=== PATIENT | female | born 1985 | race American Indian/Alaskan Native ===

== ENCOUNTER 2016-05-30 05:10 | Emergency (ER) | payer SELFPAY ==
[2016-05-30 05:44] VITALS: BP 172/116
[2016-05-30] MEDS ORDERED: TYLENOL PO ONE (05:44)
[2016-05-30 06:27] LABS: BUN/Creatinine Ratio 11.42; Blood Urea Nitrogen 8 mg/dL (7-17); Calcium 8.9 mg/dL (8.4-10.2); Carbon Dioxide 24 mmol/L (22-30); Chloride 102.9 mmol/L (98-107); Glucose 101 mg/dL (65-100); Sodium 142 mmol/L (137-145)
[2016-05-30 06:32] LABS: Anion Gap 19 mmol/L
[2016-05-30 07:10] LABS: Basophils % (Auto) 0.3 % (0.0-1.8); Hematocrit 31.8 % (30.3-42.9); Hemoglobin 9.7 gm/dl (10.1-14.3); Mean Corpuscular HGB Conc 30 % (30-34); Platelet Count 309 K/mm3 (140-440); Red Blood Count 4.97 M/mm3 (3.65-5.03); White Blood Count 5.8 K/mm3 (4.5-11.0)
[2016-05-30 07:17] LABS: Mean Corpuscular Hemoglobin 19 pg (28-32); Mean Corpuscular Volume 64 fl (79-97); Red Cell Distribution Width 20.3 % (13.2-15.2)
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
== END 2016-05-30 06:05 | disposition left against medical advice (07) ==
LOC: ED 05:10
DX: R51 Headache (principal); R11.10 Vomiting, unspecified; Z53.21 Procedure and treatment not carried out due to patient leaving prior to being seen by health care provider
CPT/HCPCS: 36415; 80048; 85025

== ENCOUNTER 2017-05-19 15:45 | Emergency (ER) | payer SELFPAY ==
[2017-05-19 16:09] VITALS: BP 137/91
[2017-05-19 17:55] LABS: Basophils % (Auto) 0.3 % (0.0-1.8); Eosinophils % (Auto) 0.1 % (0.0-4.3); Hematocrit 35.4 % (30.3-42.9); Lymphocytes # (Auto) 0.6 K/mm3 (1.2-5.4); Lymphocytes % (Auto) 7.5 % (13.4-35.0); Mean Corpuscular HGB Conc 31 % (30-34); Monocytes # (Auto) 0.4 K/mm3 (0.0-0.8); Monocytes % (Auto) 5.1 % (0.0-7.3); Platelet Count 237 K/mm3 (140-440); Red Blood Count 5.75 M/mm3 (3.65-5.03)
[2017-05-19 17:58] LABS: Mean Corpuscular Hemoglobin 19 pg (28-32); Mean Corpuscular Volume 62 fl (79-97); Red Cell Distribution Width 20.1 % (13.2-15.2)
[2017-05-19 18:09] LABS: Alanine Aminotransferase 30 units/L (7-56); Albumin 4.3 g/dL (3.9-5); BUN/Creatinine Ratio 20; Blood Urea Nitrogen 10 mg/dL (7-17); Calcium 9.5 mg/dL (8.4-10.2); Hemolysis Index 0
== END 2017-05-20 00:33 | disposition left against medical advice (07) ==
LOC: ED 15:45
DX: Z53.21 Procedure and treatment not carried out due to patient leaving prior to being seen by health care provider (principal)
CPT/HCPCS: 36415; 80053; 84703; 85025

== ENCOUNTER 2017-07-24 19:18 | Emergency (ER) | payer SELFPAY | END 2017-07-24 19:19 | disposition left against medical advice (07) | LOC: ED 19:18 | DX: K08.89 Other specified disorders of teeth and supporting structures (principal); Z53.21 Procedure and treatment not carried out due to patient leaving prior to being seen by health care provider ==

== ENCOUNTER 2017-10-05 11:15 | Emergency (ER) | payer OTHER ==
[2017-10-05] MEDS ORDERED: MOTRIN PO ONE (13:30)
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
[2017-10-05 14:15] VITALS: BP 141/87
== END 2017-10-05 14:15 | disposition home or self-care (01) ==
LOC: ED 11:15
DX: S39.012A Strain of muscle, fascia and tendon of lower back, initial encounter (principal); I10 Essential (primary) hypertension; F17.200 Nicotine dependence, unspecified, uncomplicated; V89.2XXA Person injured in unspecified motor-vehicle accident, traffic, initial encounter; Y93.89 Activity, other specified; Y92.89 Other specified places as the place of occurrence of the external cause; Y99.8 Other external cause status
CPT/HCPCS: 99282

== ENCOUNTER 2018-02-09 00:19 | Emergency (ER) | payer SELFPAY ==
[2018-02-09 00:51] VITALS: BP 184/103
[2018-02-09] MEDS ORDERED: ASPIRIN PO ONE (00:51)
== END 2018-02-09 01:10 | disposition left against medical advice (07) ==
LOC: ED 00:19
DX: R10.9 Unspecified abdominal pain (principal); Z53.21 Procedure and treatment not carried out due to patient leaving prior to being seen by health care provider
CPT/HCPCS: 93005; 93010

== ENCOUNTER 2018-07-26 21:38 | Inpatient (IN) | payer SELFPAY ==
--- NOTE | 2018-07-26 21:50 | Emergency Department Report ---
Chief Complaint: Neuro Symptoms/Deficit Stated Complaint: ARM NUMBNESS/CHEST PAIN Time Seen by Provider: 07/26/18 21:47 - HPI History of Present Illness: <1 hago started shaking per sister she could not find words l pronator drift in triage l facial weakness pmh htn thyroid disease BACK PAIN - injections in the past rx none cig no etoh no drugs psh none lmp 2/ CODE STROKE MSE screening note: Focused history and physical exam performed. Due to findings the following was ordered: ED Disposition for MSE Condition: Stable
--- NOTE | 2018-07-26 22:08 | Cat Scan Report ---
PROCEDURE: CT HEAD/BRAIN WO CON TECHNIQUE: Computerized tomography of the head was performed without contrast material. HISTORY: Stroke symptoms COMPARISONS: None . FINDINGS: Skull and scalp: Normal . Paranasal sinuses: Normal . Ventricles and subarachnoid spaces: Normal . Cerebrum: No evidence of hemorrhage, acute infarction or mass . Cerebellum and brainstem: No evidence of hemorrhage, acute infarction or mass . Vasculature: Normal . Other: None . IMPRESSION: No evidence of hemorrhage, acute infarction or mass .. This document is electronically signed by Park Kebede MD., July 26 2018 10:06:15 PM ET
--- NOTE | 2018-07-26 22:12 | Emergency Department Report ---
HPI - General Chief Complaint: Neuro Symptoms/Deficit Time Seen by Provider: 07/26/18 21:47 - HPI HPI: Room 23 The patient is a 33-year-old female presenting with chief complaint chest pain and left-sided numbness. The patient states at approximately 20:00 she developed numbness and tingling in the fingers of her left hand. The patient states the numbness then, as her entire left arm and left leg. The patient states she then developed stinging substernal chest pain associated with shortness of breath. Location: Chest, left arm, left leg Duration: [See above] Quality: Numbness, stinging Severity: Moderate Modifying factors: [see above] Context: [see above] Mode of transportation: [not driving] ED Past Medical Hx - Past Medical History Hx Hypertension: Yes Additional medical history: Vaginal delivery x 4 - Surgical History Past Surgical History?: No - Family History Family history: no significant - Social History Smoking Status: Never Smoker Substance Use Type: None - Medications Home Medications: Home Medications Medication Instructions Recorded Confirmed Last Taken Type Cyclobenzaprine HCl [FLEXERIL] 10 mg PO TID PRN #12 tablet 03/31/13 Unknown Rx Hydrocodone Bit/Acetaminophen 1 each PO Q6H PRN #12 tablet 03/31/13 Unknown Rx [Lortab 10-500 mg] Ibuprofen [Motrin 800 MG tab] 800 mg PO TID #30 tablet 03/31/13 Unknown Rx hydroCHLOROthiazide [Hctz] 25 mg PO QDAY #30 tablet 04/01/13 Unknown Rx Cyclobenzaprine [Flexeril] 10 mg PO QHS PRN #7 tablet 10/05/17 Unknown Rx Ibuprofen [Motrin] 600 mg PO Q8H PRN #30 tablet 10/05/17 Unknown Rx ED Review of Systems ROS: Stated complaint: ARM NUMBNESS/CHEST PAIN Other details as noted in HPI Constitutional: denies: diaphoresis Eyes: denies: eye pain ENT: denies: throat pain Respiratory: shortness of breath Cardiovascular: chest pain Endocrine: no symptoms reported Gastrointestinal: denies: abdominal pain Genitourinary: denies: dysuria Neurological: numbness, paresthesias Physical Exam - Physical Exam Physical Exam: GENERAL: The patient is well-developed well-nourished female lying on stretcher appearing to be in moderate discomfort. [] HEENT: Normocephalic. Atraumatic. Extraocular motions are intact. Patient has moist mucous membranes. NECK: Supple. Trachea midline CHEST/LUNGS: Clear to auscultation. There is no respiratory distress noted. HEART/CARDIOVASCULAR: Regular. There is no tachycardia. There is no gallop rub or murmur. ABDOMEN: Abdomen is soft, nontender. Patient has normal bowel sounds. There is no abdominal distention. SKIN: There is no rash. There is no edema. There is no diaphoresis. NEURO: The patient is awake, alert, and oriented. The patient is cooperative. Cranial nerves II through XII grossly intact. Decreased sensation to light touch of the left arm and left leg. Patient exhibits some difficulty flexing left lower extremity at the hip and knee. The patient has normal speech MUSCULOSKELETAL: There is no evidence of acute injury. NIHSS= 3 LOC a. Alert= 0 Not alert but arousable to minor stimuli=1 Not alert requires repeated or strong stimuli to move= 2 Responds only reflex motor or unresponsive=3 b. asks month and age answers both correctly= 0 answers one correctly= 1 answers neither correctly= 2 Best Gaze normal= 0 abnormal in one or both but forced deviation or total paresis absent= 1 forced deviation or total gaze paresis= 2 Visual no visual loss= 0 partial hemianopia= 1 complete hemianopia= 2 bilateral hemianopia= 3 Facial Palsy normal= 0 minor paralysis= 1 partial paralysis= 2 complete paralysis= 3 Motor Arm no drift= 0 (+)drift before 10 secs but doesnt hit bed= 1 some effort against gravity= 2 no effort against gravity= 3 no movement= 4 Motor leg no drift= 0 (+)drift before 5 secs but doesnt hit bed= 1 drifts to bed before 5 secs= 2 no effort against gravity= 3 no movement= 4 Limb ataxia absent=0 present in one limb= 1 present in two limbs= 2 Sensory normal= 0 (+)mild sensory loss= 1 severe (unaware of being touched)= 2 Best language mild/some loss of fluency= 1 severe= 2 mute= 3 Dysarthria normal= 0 slurs some words= 1 severe/unintelligible= 2 Extinction and Inattention no abnormality= 0 visual, tactile, auditory or personal inattention= 1 profound (doesnt recognize own hand or orients to only one side= 2 ED Course - Consultations Consultation #1: 07/26/18 22:31 Case discussed with [id number] TPA. Recommends MRI as part of inpatient workup ED Medical Decision Making - Lab Data Result diagrams: 07/26/18 22:06 07/26/18 22:06 Laboratory Tests 07/26/18 07/26/18 07/26/18 21:48 22:06 22:06 WBC 9.2 RBC 6.01 H Hgb 12.0 Hct 37.8 MCV 63 L MCH 20 L MCHC 32 RDW 15.9 H Plt Count 196 Lymph % (Auto) Hobbing Machine Operator [place] % (Auto) Hobbing Machine Operator Eos % (Auto) Hobbing Machine Operator Baso % (Auto) Hobbing Machine Operator Lymph # Hobbing Machine Operator Hardeman # Hobbing Machine Operator Eos # Hobbing Machine Operator Baso # Hobbing Machine Operator Add Manual Diff Complete Total Counted 100 Seg Neutrophils % Hobbing Machine Operator Seg Neuts % (Manual) 57.0 Band Neutrophils % 0 Lymphocytes % (Manual) 33.0 Reactive Lymphs % (Man) 0 Monocytes % (Manual) 8.0 H Eosinophils % (Manual) 2.0 Basophils % (Manual) 0 Metamyelocytes % 0 Myelocytes % 0 Promyelocytes % 0 Blast Cells % 0 Nucleated RBC % Not Reportable Seg Neutrophils # Hobbing Machine Operator Seg Neutrophils # Man 5.2 Band Neutrophils # 0.0 Lymphocytes # (Manual) 3.0 Abs React Lymphs (Man) 0.0 Monocytes # (Manual) 0.7 Eosinophils # (Manual) 0.2 Basophils # (Manual) 0.0 Metamyelocytes # 0.0 Myelocytes # 0.0 Promyelocytes # 0.0 Blast Cells # 0.0 WBC Morphology Not Reportable Hypersegmented Neuts Not Reportable Hyposegmented Neuts Not Reportable Hypogranular Neuts Not Reportable Smudge Cells Not Reportable Toxic Granulation Not Reportable Toxic Vacuolation Not Reportable Dohle Bodies Not Reportable Pelger-Huet Anomaly Not Reportable Anabell Rods Not Reportable Platelet Estimate Consistent w auto Clumped Platelets Not Reportable Plt Clumps, EDTA Not Reportable Large Platelets Not Reportable Giant Platelets Not Reportable Platelet Satelliting Not Reportable Plt Morphology Comment Not Reportable RBC Morphology Not Reportable Dimorphic RBCs Not Reportable Polychromasia Not Reportable Hypochromasia 2+ Poikilocytosis Not Reportable Anisocytosis 1+ Microcytosis 2+ Macrocytosis Not Reportable Spherocytes Not Reportable Pappenheimer Bodies Not Reportable Sickle Cells Not Reportable Target Cells Not Reportable Tear Drop Cells Not Reportable Ovalocytes 1+ Helmet Cells Not Reportable Rocha-[place] Bodies Not Reportable [place] Rings Not Reportable Serjio Cells Not Reportable Bite Cells Not Reportable Crenated Cell Not Reportable Elliptocytes Not Reportable Acanthocytes (Spur) Not Reportable Rouleaux Not Reportable Hemoglobin C Crystals Not Reportable Schistocytes Not Reportable Malaria parasites Not Reportable [place] Bodies Not Reportable Hem Pathologist Commnt No PT 12.8 INR 0.91 APTT 26.9 Thrombin Time 16.6 Sodium Potassium Chloride Carbon Dioxide Anion Gap BUN Creatinine Estimated GFR BUN/Creatinine Ratio Glucose POC Glucose 108 H Calcium Total Bilirubin AST ALT Alkaline Phosphatase Total Creatine Kinase CK-MB (CK-2) CK-MB (CK-2) Rel Index Troponin T Total Protein Albumin Albumin/Globulin Ratio 07/26/18 07/26/18 22:06 22:06 WBC RBC Hgb Hct MCV MCH MCHC RDW Plt Count Lymph % (Auto) [place] % (Auto) Eos % (Auto) Baso % (Auto) Lymph # [place] # Eos # Baso # Add Manual Diff Total Counted Seg Neutrophils % Seg Neuts % (Manual) Band Neutrophils % Lymphocytes % (Manual) Reactive Lymphs % (Man) Monocytes % (Manual) Eosinophils % (Manual) Basophils % (Manual) Metamyelocytes % Myelocytes % Promyelocytes % Blast Cells % Nucleated RBC % Seg Neutrophils # Seg Neutrophils # Man Band Neutrophils # Lymphocytes # (Manual) Abs React Lymphs (Man) Monocytes # (Manual) Eosinophils # (Manual) Basophils # (Manual) Metamyelocytes # Myelocytes # Promyelocytes # Blast Cells # WBC Morphology Hypersegmented Neuts Hyposegmented Neuts Hypogranular Neuts Smudge Cells Toxic Granulation Toxic Vacuolation Dohle Bodies Pelger-Huet Anomaly Anabell Rods Platelet Estimate Clumped Platelets Plt Clumps, EDTA Large Platelets Giant Platelets Platelet Satelliting Plt Morphology Comment RBC Morphology Dimorphic RBCs Polychromasia Hypochromasia Poikilocytosis Anisocytosis Microcytosis Macrocytosis Spherocytes Pappenheimer Bodies Sickle Cells Target Cells Tear Drop Cells Ovalocytes Helmet Cells Rocha-[place]angev[place] Bodies [place] Rings [place] Cells Bite Cells Crenated Cell Elliptocytes Acanthocytes (Spur) Rouleaux Hemoglobin C Crystals Schistocytes Malaria parasites [place] Bodies Hem Pathologist Commnt PT INR APTT Thrombin Time Sodium 138 Potassium 3.7 Chloride 102.5 Carbon Dioxide 20 L Anion Gap 19 BUN 6 L Creatinine 0.4 L Estimated GFR > 60 BUN/Creatinine Ratio 15 Glucose 113 H POC Glucose Calcium 9.3 Total Bilirubin 0.60 AST 46 H ALT 32 Alkaline Phosphatase 176 H Total Creatine Kinase 54 CK-MB (CK-2) 1.0 CK-MB (CK-2) Rel Index 1.8 Troponin T < 0.010 Total Protein 7.7 Albumin 4.0 Albumin/Globulin Ratio 1.1 - EKG Data -: EKG Interpreted by Md EKG shows normal: sinus rhythm Rate: tachycardia (107 bpm) - EKG Data When compared to previous EKG there are: previous EKG unavailable Interpretation: other (no ischemic changes seen) - Radiology Data Radiology results: report reviewed (CT head, CT chest), image reviewed (CT head, CT chest) [facility] [address] [place] [address] Cat Scan Report Signed Patient: JENS TSAI MR#: [id number] : 1985 Acct:[id number] Age/Sex: 33 / F ADM Date: 07/26/18 Loc: ED Attending Dr: Ordering Physician: LAUREN ALBRECHT Date of Service: 07/26/18 Procedure(s): CT head/brain wo con Accession Number(s): [id number] cc: LAUREN ALBRECHT PROCEDURE: CT HEAD/BRAIN WO CON TECHNIQUE: Computerized tomography of the head was performed without contrast material. HISTORY: Stroke symptoms COMPARISONS: None . FINDINGS: Skull and scalp: Normal . Paranasal sinuses: Normal . Ventricles and subarachnoid spaces: Normal . Cerebrum: No evidence of hemorrhage, acute infarction or mass . Cerebellum and brainstem: No evidence of hemorrhage, acute infarction or mass . Vasculature: Normal . Other: None . IMPRESSION: No evidence of hemorrhage, acute infarction or mass .. This document is electronically signed by Laura Boucher MD., July 26 2018 10:06:15 PM ET Transcribed By: MAYNOR Dictated By: LAURA BOUCHER Electronically Authenticated By: LAURA BOUCHER Signed Date/Time: 07/26/182207 DD/ 99 TD/TT: 07/26/182200 [facility] [address] [place] [address] Cat Scan Report Signed Patient: JENS TSAI MR#: [id number] : 1985 Acct:[id number] Age/Sex: 33 / F ADM Date: 07/26/18 Loc: ED Attending Dr: Ordering Physician: RADHA MEEHAN MD Date of Service: 07/26/18 Procedure(s): CT angio chest Accession Number(s): [id number] cc: RADHA MEEHAN MD PROCEDURE: CT ANGIO CHEST TECHNIQUE: A CT angiogram was performed following the intravenous injection of iodinated contrast. Rotational, sagittal, and coronal MIP reconstructions were reviewed. HISTORY: chest pain COMPARISONS: None FINDINGS: There is no evidence of pulmonary embolus or aortic dissection. The thoracic aorta is normal in size. The heart size is normal. Pericardial fluid is not seen. There is no evidence of adenopathy. The lungs are clear. Pleural fluid is not seen. In the upper abdomen the adrenal glands appear normal. The skeletal structures appear normal. At the thoracic inlet there is generalized enlargement of the thyroid gland compatible with thyromegaly. IMPRESSION: No evidence of pulmonary embolus, aortic dissection, or vascular congestion. No acute process in the chest. Thyromegaly.. This document is electronically signed by Reagan Wing MD., July 27 2018 12 :52:26 AM ET Transcribed By: RB Dictated By: REAGAN WING MD Electronically Authenticated By: REAGAN WING MD Signed Date/Time: 07/27/18 0054 DD/ TD/TT: 07/27/1843 - Differential Diagnosis ACS, CVA, Critical care attestation.: If time is entered above; I have spent that time in minutes in the direct care of this critically ill patient, excluding procedure time. ED Disposition Clinical Impression: Stroke, Chest pain Disposition: OP ADMIT IP TO THIS HOSP Is pt being admited?: Yes Does the pt Need Aspirin: Yes Condition: Fair Instructions: Chest Pain (ED) Time of Disposition: 01:05 (hospitalist paged (Dr Arreguin))
[2018-07-26 22:26] LABS: Hematocrit 37.8 % (30.3-42.9); Mean Corpuscular HGB Conc 32 % (30-34); Red Blood Count 6.01 M/mm3 (3.65-5.03); Red Cell Distribution Width 15.9 % (13.2-15.2)
[2018-07-26 22:31] LABS: Mean Corpuscular Volume 63 fl (79-97)
[2018-07-26] MEDS ORDERED: ASPIRIN PO ONE (22:31)
[2018-07-26 22:32] LABS: Alanine Aminotransferase 32 units/L (7-56); BUN/Creatinine Ratio 15; Blood Urea Nitrogen 6 mg/dL (7-17); Calcium 9.3 mg/dL (8.4-10.2); Hemolysis Index 15; Platelet Count 196 K/mm3 (140-440)
[2018-07-26 22:39] LABS: INR 0.91 (0.87-1.13)
[2018-07-26 22:40] LABS: Partial Thromboplastin Time 26.9 Sec. (24.2-36.6); Thrombin Time 16.6 Sec. (15.1-19.6)
--- NOTE | 2018-07-26 22:46 | Emergency Department Report ---
ED Neuro Deficit HPI - General Chief Complaint: Neuro Symptoms/Deficit Stated Complaint: ARM NUMBNESS/CHEST PAIN Time Seen by Provider: 07/26/18 21:47 Source: patient Mode of arrival: Ambulatory Limitations: No Limitations - History of Present Illness Initial Comments: [facility] Impression: paresthesias unclear etiology, migrainous vs cerebrovascular vs demyelinating in [facility]. Further testing with CT contrast of the chest is pending as ell. Not a tpa candidate due to: non-disabiling syndrome Not an PINKY candidate due to: no cortical findigs, does not meet lvo screening criteria. Comments: [facility] contacted: 2210 [facility] at bedside:2215 NIHSS assessment time: 2215 Recommendations: Antiplatelet therapy if no CI Mri brain r/o stroke evaluation of chest pain and sob as per ED/ IM Further neurology evaluation inpt if deemed appropriate Discussed with ED MD History of Present Illness Patient is a33 yo F with h/o HTN She p/w left sided tingling, shooting pain in the head, left arm and chest, SOB and generalized malaise. Pt started to feel unwell around noon time but this was non-specific At [id number], she developed the shooting pain in the left arm, head and chest followed by the SOB. She noted tingling in the left side afterthis. HCT isnegative for acute findings. Exam NIHSS score:1 1A: Level of Consciousness - Alert; keenly responsive 1B: Ask Month and Age - Both Questions Right 1C: 'Blink Eyes' & 'Squeeze Hands' - Performs Both Tasks 2: Test Horizontal Extraocular Movements - Normal 3: Test Visual Abdullahi - No Visual Loss 4: Test Facial Palsy - Normal symmetry 5A: Test Left Arm Motor Drift - No Drift for 10 Seconds 5B: Test Right Arm Motor Drift - No Drift for 10 Seconds 6A: Test Left Leg Motor Drift - No Drift for 5 Seconds 6B: Test Right Leg Motor Drift - No Drift for 5 Seconds 7: Test Limb Ataxia - No Ataxia 8: Test Sensation - Mild-Moderate Loss: Less Sharp/More Dull 9: Test Language/Aphasia - Normal; No aphasia 10: Test Dysarthria - Normal 11: Test Extinction/Inattention - No abnormality Medical Decision Making: - Extensive number of diagnosis or management options are considered above. - Extensive amount of complex data reviewed. - High risk of complication and/or morbidity or mortality are associated with differential diagnostic considerations above. - There may be Uncertain outcome and increased probability of prolonged func tional impairment or high probability of severe prolonged functional impairment associated with some of these differential diagnosis. Medical Data Reviewed: 1.Data reviewed include clinical labs, radiology, Medical Tests; 2.Tests results discussed w/performing or interpreting physician; 3.Obtaining/reviewing old medical records; 4.Obtaining case history from another source; 5.Independent review of image, tracing or specimen. - Related Data Home Medications: Previous Rx's Medication Instructions Recorded Last Taken Type Cyclobenzaprine HCl [FLEXERIL] 10 mg PO TID PRN #12 tablet 03/31/13 Unknown Rx Hydrocodone Bit/Acetaminophen 1 each PO Q6H PRN #12 tablet 03/31/13 Unknown Rx [Lortab 10-500 mg] Ibuprofen [Motrin 800 MG tab] 800 mg PO TID #30 tablet 03/31/13 Unknown Rx hydroCHLOROthiazide [Hctz] 25 mg PO QDAY #30 tablet 04/01/13 Unknown Rx Cyclobenzaprine [Flexeril] 10 mg PO QHS PRN #7 tablet 10/05/17 Unknown Rx Ibuprofen [Motrin] 600 mg PO Q8H PRN #30 tablet 10/05/17 Unknown Rx Allergies/Adverse Reactions: Allergies Allergy/AdvReac Type Severity Reaction Status Date / Time No Known Allergies Allergy Verified 05/19/17 16:07 ED Review of Systems ROS: Stated complaint: ARM NUMBNESS/CHEST PAIN Other details as noted in HPI Constitutional: denies: diaphoresis Eyes: denies: eye pain ENT: denies: throat pain Respiratory: shortness of breath Cardiovascular: chest pain Endocrine: no symptoms reported Gastrointestinal: denies: abdominal pain Genitourinary: denies: dysuria Neurological: numbness, paresthesias ED Past Medical Hx - Past Medical History Hx Hypertension: Yes Additional medical history: Vaginal delivery x 4 - Surgical History Past Surgical History?: No - Social History Smoking Status: Never Smoker Substance Use Type: None - Medications Home Medications: Home Medications Medication Instructions Recorded Confirmed Last Taken Type Cyclobenzaprine HCl [FLEXERIL] 10 mg PO TID PRN #12 tablet 03/31/13 Unknown Rx Hydrocodone Bit/Acetaminophen 1 each PO Q6H PRN #12 tablet 03/31/13 Unknown Rx [Lortab 10-500 mg] Ibuprofen [Motrin 800 MG tab] 800 mg PO TID #30 tablet 03/31/13 Unknown Rx hydroCHLOROthiazide [Hctz] 25 mg PO QDAY #30 tablet 04/01/13 Unknown Rx Cyclobenzaprine [Flexeril] 10 mg PO QHS PRN #7 tablet 10/05/17 Unknown Rx Ibuprofen [Motrin] 600 mg PO Q8H PRN #30 tablet 10/05/17 Unknown Rx ED Neuro Physical Exam - General Limitations: No Limitations Suspected Stroke: Yes - NIHSS Assessment Interval: Baseline 1a. Level of Consciousness: alert/keenly responsive 1b. LOC Questions: answers both correctly 1c. LOC Commands: performs tasks correctly 2. Best Gaze: normal 3. Visual: no visual loss 4. Facial Palsy: normal symmetrical movement 5b. Motor Arm Right: no drift 5a. Motor Arm Left: no drift 6a. Motor Leg Left: no drift 6b. Motor Leg Right: no drift 7. Limb Ataxia: absent 8. Sensory: mild/moderate sensory loss 9. Best Language: no aphasia 10. Dysarthria: normal 11. Extinction/Inattention: no abnormality Total Score: 1 Stroke Severity: Minor Stroke - Lab Data Result diagrams: 07/26/18 22:06 Lab Results 07/26/18 07/26/18 07/26/18 Range/Units 21:48 22:06 22:06 WBC 9.2 (4.5-11.0) K/mm3 RBC 6.01 H (3.65-5.03) M/mm3 Hgb 12.0 (10.1-14.3) gm/dl Hct 37.8 (30.3-42.9) % MCV 63 L (79-97) fl MCH 20 L (28-32) pg MCHC 32 (30-34) % RDW 15.9 H (13.2-15.2) % Plt Count 196 (140-440) K/mm3 Lymph % (Auto) [facility] [place] % (Auto) [facility] Eos % (Auto) [facility] Baso % (Auto) [facility] Lymph # [facility] [place] # [facility] Eos # [facility] Baso # [facility] Seg Neutrophils % [facility] Seg Neutrophils # [facility] POC Glucose 108 H (70-105) CK-MB (CK-2) 1.0 (0.0-4.0) ng/mL Troponin T < 0.010 (0.00-0.029) ng/mL Critical care attestation.: If time is entered above; I have spent that time in minutes in the direct care of this critically ill patient, excluding procedure time. ED Disposition Clinical Impression: Stroke Disposition: DC-09 OP ADMIT IP TO THIS HOSP Is pt being admited?: Yes
[2018-07-26 23:03] LABS: Basophils % (Manual) 0 % (0.0-1.8); Hypochromasia 2+; Total Cells Counted 100
[2018-07-26 23:04] LABS: Anisocytosis 1+; Ovalocytes 1+; Platelet Estimate Consistent w Auto
[2018-07-27] MEDS ORDERED: SUBLIMAZE IV ONE (00:28)
[2018-07-27] MEDS ORDERED: ZOFRAN IV ONE (00:28)
--- NOTE | 2018-07-27 00:54 | Cat Scan Report ---
PROCEDURE: CT ANGIO CHEST TECHNIQUE: A CT angiogram was performed following the intravenous injection of iodinated contrast. R otational, sagittal, and coronal MIP reconstructions were reviewed. HISTORY: chest pain COMPARISONS: None FINDINGS: There is no evidence of pulmonary embolus or aortic dissection. The thoracic aorta is normal in size. The heart size is normal. Pericardial fluid is not seen. There is no evidence of adenopathy. The larry gs are clear. Pleural fluid is not seen. In the upper abdomen the adrenal glands appear normal. The s keletal structures appear normal. At the thoracic inlet there is generalized enlargement of the thyro id gland compatible with thyromegaly. IMPRESSION: No evidence of pulmonary embolus, aortic dissection, or vascular congestion. No acute process in the chest. Thyromegaly.. This document is electronically signed by Cristiano Wing MD., July 27 2018 12:52:26 AM ET
[2018-07-27] MEDS ORDERED: TYLENOL PO PRN (02:19)
[2018-07-27] MEDS ORDERED: NITROSTAT SL PRN (02:20)
[2018-07-27] MEDS ORDERED: ZOFRAN IV PRN (02:20)
[2018-07-27] MEDS ORDERED: APRESOLINE IV PRN (03:15)
--- NOTE | 2018-07-27 04:12 | History and Physical Report ---
CHIEF COMPLAINT: Numbness on the left side of the body with weakness. OTHER COMPLAINT: Includes chest pain. HISTORY OF PRESENTING ILLNESS: The patient is a 33-year-old female who said she has been having numbness on the left side of the body with some mild weakness with heavy sensation in the left lower extremity. The patient also complains of chest pain. Denied any history of diaphoresis and said the chest pain is substernal in location and associated with shortness of breath. There is also history of nausea, but no vomiting. There is no history of dizziness and no history of headache or speech impairment. The patient says she is concerned because of family history of heart attack and stroke. PAST MEDICAL HISTORY: Pertinent for hypertension. PAST SURGICAL HISTORY: Unremarkable. FAMILY HISTORY: There is family history of cerebrovascular accident and coronary artery disease. SOCIAL HISTORY: The patient does not smoke, does not drink alcohol and does not use illicit drugs. MEDICATIONS: The patient is on Flexeril 10 mg by mouth 3 times daily, Lortab 10/500 mg one by mouth every 6 hours and ibuprofen 800 mg by mouth 3 times daily as needed for pain, and hydrochlorothiazide 25 mg by mouth daily. ALLERGIES: The patient has no known drug allergies. REVIEW OF SYSTEMS: CONSTITUTIONAL: There is no fever, no chills, no diaphoresis. HEENT: There is no headache or sore throat. CARDIOVASCULAR SYSTEM: Chest pain is present. No orthopnea. RESPIRATORY SYSTEM: Shortness of breath is present. No cough. GASTROINTESTINAL SYSTEM: There is nausea, but no vomiting, no abdominal pain, diarrhea or constipation. NEUROLOGICAL SYSTEM: Numbness on the left side of the body including the left side of the face noted. Weakness of the left side of the body especially in the left lower extremity noted. There is no loss of sensory function, no speech impairment. MUSCULOSKELETAL SYSTEM: There is no joint pain or swelling. DERMATOLOGICAL SYSTEM: There is no skin rash or itching. GENITOURINARY SYSTEM: There is no dysuria, hematuria or flank pain. Rest of system review is normal. PHYSICAL EXAMINATION: GENERAL: At the time of exam, the patient was found to be alert, oriented x 3 and not in acute distress. VITAL SIGNS: Shows normal temperature with pulse of 107, respirations 24, blood pressure 172/93, O2 sat of 98% on room air. HEENT: Shows pupils to be equal, round, reactive to light and accommodating. Extraocular muscles are intact. NECK: Neck is supple with no JVD or carotid bruit. CARDIOVASCULAR SYSTEM: Show normal first and second heart sounds with no gallops or murmurs. RESPIRATORY SYSTEM: Show good air entry on both sides of the lungs with no abnormal breath sounds. GASTROINTESTINAL SYSTEM: Show abdomen to be full, soft, nontender with no organomegaly or rigidity. NEUROLOGIC: Neuro exam shows normal sensory function with decreased muscle strength in the left side compared to the right side with muscle strength of grade 3/6 on the left lower extremity compared to grade 5/6 on the right and also muscle strength of grade 4/6 on the left upper extremity compared to grade 5/6 on the right. MUSCULOSKELETAL SYSTEM: Show no joint swelling or tenderness. DERMATOLOGICAL SYSTEM: Show no skin rash. GENITOURINARY SYSTEM: Showing no costovertebral angle tenderness. PERTINENT LABORATORY DATA AND IMAGING STUDIES: The patient had a CT of the head done without contrast done that came back unremarkable and also, the patient had a CT angiogram of the chest that shows no evidence of pulmonary embolism or aortic dissection or vascular congestion. There is no acute process found, but there is thyromegaly seen. Lab results; the patient has CBC done with normal white count, normal hemoglobin and normal hematocrit with CBC differential showing elevated monocyte count of 8%. The patient's coagulation studies came back unremarkable and chemistry was unremarkable except for elevated AST of 46 with normal ALT with rest of the chemistry being normal and cardiac enzymes coming back normal. DIAGNOSES: 1. Left-sided numbness and weakness. 2. Chest pain. 3. Hypertension. PLAN OF CARE: 1. The patient will be admitted to telemetry. 2. The patient will have MRI of the brain without contrast done this morning. 3. The patient will have bilateral carotid Doppler done this morning. 4. The patient will have Neurology consult with Dr. Soco Del Toro this morning. 5. The patient will be on aspirin 325 mg by mouth daily. 6. The patient will be n.p.o. for Lexiscan stress test this morning. 7. The patient will have cardiac enzymes involving troponin, total CK and CK-MB check serially x 2 more levels. 8. The patient will be on morphine 2 mg IV every 3 hours as needed for pain and IV Zofran 4 mg every 8 hours for nausea and vomiting. 9. The patient will be on nitro paste half inch to anterior chest wall q.i.d. and will also be on sublingual nitroglycerin 0.4 mg every 5 minutes for breakthrough chest pain. 10. The patient will be on Tylenol 650 mg by mouth every 4 hours as needed for headache and fever and will be on oxygen by nasal cannula 2 liters per minute. 11. The patient will be on aspirin 325 mg by mouth daily and DVT prophylaxis will be through sequential compression device. 12. The patient will be on IV hydralazine 10 mg every 4 hours for blood pressure of 150/90 or more. JOB# [id number] OCN/NTS
[2018-07-27] MEDS: NITRO-BID 2% TP SCH ×6 (05:30→19:44)
[2018-07-27 06:25] LABS: Creatine Kinase MB 2.1 ng/mL (0.0-4.0)
[2018-07-27] MEDS ORDERED: TYLENOL ONE (09:15)
[2018-07-27] MEDS ORDERED: LEXISCAN IV ONE (10:30)
--- NOTE | 2018-07-27 12:58 | Vascular Lab Report ---
PROCEDURE: VL CAROTID DUPLEX BILAT TECHNIQUE: Duplex Doppler ultrasound of the common, internal and external carotid arteries and the v ertebral arteries was performed bilaterally. Gonzalez scale imaging, velocity spectral waveform analysis, and color flow Doppler were employed. HISTORY: NUMBNESS AND WEAKNESS OF LEFT SIDE OF THE BODY COMPARISONS: None . Note: Measurement of carotid stenosis is based on flow velocity values that correlate with the [place] Symptomatic Carotid Endarterectomy Trial (NASCET) based stenosis criteria using the internal carotid artery diameter as the denominator for stenosis calculation. FINDINGS: RIGHT carotid artery: Velocities: ICA PSV: 153 cm/sec ICA End diastolic: 59 cm/sec CCA PSV: 138 cm/sec IC/CC ratio: 1. 0 Plaque/color flow: No significant plaque identified. . RIGHT vertebral artery: Antegrade systolic and diastolic flow LEFT carotid artery: Velocities: ICA PSV: 157 cm/sec ICA End diastolic: 75 cm/sec CCA PSV: 138 cm/sec IC/CC ratio: 1. 17 Plaque/color flow: No significant plaque identified . LEFT vertebral artery: Antegrade systolic and diastolic flow IMPRESSION: The bilateral internal carotid arteries demonstrate systolic and diastolic flow acceleration compatib le with 50-69% diameter stenosis. However no appreciable plaque reidentified. Finding could represent hyperdynamic state. Underlying etiology such as fibromuscular dysplasia could be present. Further co rrelation with CTA or MRA recommended. The bilateral vertebral arteries are patent with antegrade flow This document is electronically signed by Chucky Rollins MD., July 27 2018 12:55:48 PM ET
[2018-07-27] MEDS ORDERED: ECOTRIN PO ONE (13:13)
[2018-07-27] MEDS ORDERED: NITRO-BID 2% TP ONE (13:13)
[2018-07-27] MEDS: ASPIRIN PO SCH (13:13)
--- NOTE | 2018-07-27 15:13 | Event Note ---
Date: 07/27/18 Patient with chest pain, numbness left upper ext. I have seen and examined her. Await results of Stress test, MRI Brain.
--- NOTE | 2018-07-27 16:00 | Progress Note ---
Subjective Date of service: 07/27/18 Interval history: CAME FOR CONSULT AND TO CHECK mri i AM UNABLE TO LOCATE THE mri OR THE PATIENT WILL FOLLOW UP HX OF MIGRAINE NOTED Objective - Vital Sign Vital Signs - 12hr 07/27/18 07/27/18 07/27/18 05:31 07:50 09:28 Pulse Rate 82 95 H Respiratory 20 16 Rate Blood Pressure Blood Pressure 141/80 [Left] O2 Sat by Pulse 98 Oximetry 07/27/18 07/27/18 07/27/18 10:04 10:09 10:25 Pulse Rate Respiratory Rate Blood Pressure 171/94 169/104 172/100 Blood Pressure [Left] O2 Sat by Pulse Oximetry 07/27/18 07/27/18 07/27/18 10:27 10:29 10:31 Pulse Rate Respiratory Rate Blood Pressure 155/94 179/98 177/96 Blood Pressure [Left] O2 Sat by Pulse Oximetry 07/27/18 07/27/18 10:33 13:13 Pulse Rate 108 H Respiratory Rate Blood Pressure 171/96 159/108 Blood Pressure [Left] O2 Sat by Pulse Oximetry - Laboratory Findings CBC and BMP: 07/26/18 22:06 07/26/18 22:06 Abnormal Lab Findings: Abnormal Labs 07/26/18 07/26/18 07/26/18 21:48 22:06 22:06 RBC 6.01 H MCV 63 L MCH 20 L RDW 15.9 H Monocytes % (Manual) 8.0 H Carbon Dioxide 20 L BUN 6 L Creatinine 0.4 L Glucose 113 H POC Glucose 108 H AST 46 H Alkaline Phosphatase 176 H Total Creatine Kinase CK-MB (CK-2) Rel Index 07/27/18 05:44 RBC MCV MCH RDW Monocytes % (Manual) Carbon Dioxide BUN Creatinine Glucose POC Glucose AST Alkaline Phosphatase Total Creatine Kinase 17 L CK-MB (CK-2) Rel Index 12.3 H
[2018-07-27 16:22] LABS: Chol/HDL Ratio 3.82 %
[2018-07-27] MEDS: MORPHINE IV PRN (17:09)
[2018-07-27 19:52] LABS: Creatine Kinase MB < 1.0 ng/mL (0.0-4.0)
--- NOTE | 2018-07-27 21:43 | Treadmill Report ---
NUCLEAR PERFUSION SCAN PROTOCOL: The patient was brought to the stress lab in a postabsorptive state, given 10 mCi of technetium 99m at rest. The patient underwent rest imaging. The patient underwent Lexiscan stress test. At peak stress, the patient was given 26 mCi of technetium 99m. Shortly thereafter, the patient underwent stress imaging. Raw imaging reveals mild GI artifact, no significant motion artifact. SPECT image examined carefully in horizontal long axis, vertical long and short axis views. There was normal homogenous uptake of radioisotope in all reported segments. No evidence of significant fixed or reversible perfusion defects suggestive of prior infarction or ischemia. Gated wall motion reveals normal systolic thickening, calculated ejection fraction of 63%, no TID. CONCLUSIONS: 1. Normal myocardial perfusion scan without evidence of active ischemia or prior infarction. 2. Normal left ventricular systolic performance without evidence of transient ischemic dilatation or stress-induced segmental wall motion abnormalities. JOB# [id number] RAINER/MADISON
[2018-07-28] MEDS: MORPHINE IV PRN (00:44)
[2018-07-28] MEDS: NITRO-BID 2% TP SCH ×2 (06:19→09:17)
[2018-07-28 09:15] VITALS: BP 113/91
[2018-07-28] MEDS: ASPIRIN PO SCH (09:16)
[2018-07-28] MEDS ORDERED: ATIVAN IV PRN (09:27)
--- NOTE | 2018-07-28 13:54 | Magnetic Resonance Report ---
MRI OF THE BRAIN WITHOUT CONTRAST: HISTORY: Numbness and weakness of left side of body PROCEDURE: Multiplanar, multisequence MR imaging of the brain without IV contrast was performed. FINDINGS: Compared to the CT head dated 07/26/18. The brain parenchyma signal intensity and its salvador white interface are within normal limits on all sequences. No evidence for acute ischemia, hemorrhage or mass. No chronic infarct or extra-axial fluid collection. The midline structures are central. The basal cisterns are patent. Normal ventricular size. The orbital cavities and sella turcica demonstrate no abnormality. The visualized paranasal sinuses and mastoid air cells are well aerated. IMPRESSION: Unremarkable non-enhanced MRI of the brain.
--- NOTE | 2018-07-28 14:05 | Progress Note ---
Subjective Date of service: 07/28/18 Interval history: THE mri IS NORMAL TO MY REVIEW AND ASSESSMENT OF RADIOLOGY INTERESTING THERE IS MICROCYTOSIS BUT NO ANEMIA POSSIBLE FACTOR CONSIDERED AND LABS RECOEMMENDED Objective - Vital Sign Vital Signs - 12hr 07/28/18 07/28/18 07/28/18 05:00 06:07 08:22 Temperature 98.4 F 98.3 F Pulse Rate 99 H 99 H 102 H Respiratory 20 20 Rate Blood Pressure 113/91 Blood Pressure 125/97 [Left] O2 Sat by Pulse 99 Oximetry 07/28/18 09:00 Temperature Pulse Rate Respiratory Rate Blood Pressure Blood Pressure [Left] O2 Sat by Pulse 100 Oximetry - Laboratory Findings CBC and BMP: 07/26/18 22:06 07/26/18 22:06 Abnormal Lab Findings: Abnormal Labs 07/26/18 07/26/18 07/26/18 21:48 22:06 22:06 RBC 6.01 H MCV 63 L MCH 20 L RDW 15.9 H Monocytes % (Manual) 8.0 H Carbon Dioxide 20 L BUN 6 L Creatinine 0.4 L Glucose 113 H POC Glucose 108 H AST 46 H Alkaline Phosphatase 176 H Total Creatine Kinase CK-MB (CK-2) Rel Index HDL Cholesterol 07/27/18 07/27/18 05:44 06:45 RBC MCV MCH RDW Monocytes % (Manual) Carbon Dioxide BUN Creatinine Glucose POC Glucose AST Alkaline Phosphatase Total Creatine Kinase 17 L CK-MB (CK-2) Rel Index 12.3 H HDL Cholesterol 28 L
--- NOTE | 2018-07-28 14:05 | Discharge Summary ---
Providers - Providers Date of Admission: 07/27/18 02:09 Date of discharge: 07/28/18 Attending physician: BETZY DAY 07/27/18 06:00 Consult to Physician [CONS] Routine Comment: called Agustina as instructed, no answer- L[facility] Consulting Provider: FELIX FORD Physician Instructions: Reason For Exam: NUMBNESS AND WEAKNESS OF LEFT SIDE OF THE BODY Physical Therapy Evaluation and Treat [CONS] Routine Comment: Reason For Exam: WEAKNESS AND NUMBNESS OF LEFT SIDE OF BODY [facility] Hospitalization Condition: Fair Hospital course: Patient is 33-year-old presented with chest pain and numbness left upper extremity. She was evaluated in Emergency Department. Initial troponin was nor mal. CT head was unremarkable. Patient was given aspirin and admitted to rule out acute coronary syndrome and also to rule out stroke. Stress test was done , was negative. MRI unremarkable. Chest pain due to GERD. She was then discharged home. total time spent on discharge, 31 mins Disposition: DC-01 TO HOME OR SELFCARE - Discharge Diagnoses (1) GERD (gastroesophageal reflux disease) Status: Acute (2) Chest pain Status: Acute (3) Hypertension Status: Acute Core Measure Documentation - Palliative Care Palliative Care/ Comfort Measures: Not Applicable - Core Measures Any of the following diagnoses?: none Exam - Constitutional Vitals: Temp Pulse Resp BP Pulse Ox 98.3 F 102 H 20 113/91 100 07/28/18 08:22 07/28/18 08:22 07/28/18 08:22 07/28/18 08:22 07/28/18 09:00 Plan Activity: no restrictions Diet: low fat, low cholesterol, low salt Additional Instructions: 1.Follow up with PCP or [facility] in 1 week Follow up with: MONA OLIVA MD [Primary Care Provider] - 7 Days Prescriptions: Famotidine [Pepcid] 20 mg PO BID #30 tablet
== END 2018-07-28 14:40 | disposition home or self-care (01) | DRG 313 ==
LOC: ED 21:38 → 4A 07-27 02:09
PROVIDERS: ADMIT Internal Medicine; ATTEND Internal Medicine
DX: R07.9 Chest pain, unspecified (principal); G43.909 Migraine, unspecified, not intractable, without status migrainosus; I10 Essential (primary) hypertension; R20.2 Paresthesia of skin; Z79.899 Other long term (current) drug therapy; Z82.49 Family history of ischemic heart disease and other diseases of the circulatory system; Z82.3 Family history of stroke
CPT/HCPCS: 36415; 70450; 70551; 71275; 78452; 80053; 80061; 82550; 82553; 82962; 84484; 84703; 85007; 85025; 85610; 85670; 85730; 93005; 93010; 93017; 93880; G0378; A9502; J2060; J2270; J2405; J2785; J3010; Q9967

== ENCOUNTER 2019-02-21 11:11 | Emergency (ER) | payer OTHER ==
[2019-02-21 11:35] VITALS: BP 168/102
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
[2019-02-21] MEDS ORDERED: TORADOL IM ONE (12:45)
[2019-02-21] MEDS ORDERED: NORCO 5/325 PO ONE (12:45)
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
== END 2019-02-21 13:49 | disposition home or self-care (01) ==
LOC: ED 11:11
DX: S39.012A Strain of muscle, fascia and tendon of lower back, initial encounter (principal); I10 Essential (primary) hypertension; Z98.51 Tubal ligation status; Z79.899 Other long term (current) drug therapy; V69.40XA Driver of heavy transport vehicle injured in collision with unspecified motor vehicles in traffic accident, initial encounter; Y93.89 Activity, other specified; Y92.410 Unspecified street and highway as the place of occurrence of the external cause; Y99.8 Other external cause status
CPT/HCPCS: 72100; 96372; 99283; J1885

== ENCOUNTER 2020-05-31 10:35 | Inpatient (IN) | payer OTHER ==
[~2020-05-31 10:35] MED LIST: HEPARIN 10,000 UNITS/10 ML VIAL IV ONE
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
[2020-05-31] MEDS ORDERED: LORazepam 2 MG/ML VIAL IV ONE (11:35)
--- NOTE | 2020-05-31 11:40 | Emergency Department Report ---
ED Abdominal Pain HPI - General Chief Complaint: Medical Clearance Stated Complaint: NUMBNESS Time Seen by Provider: 05/31/20 10:42 Source: patient Mode of arrival: Ambulatory Limitations: No Limitations - History of Present Illness Initial Comments: 34-year-old female, history of anxiety, hypertension, fibroids, presents to ED with complaint of abdominal pain. Patient states last night she is experiencing lower abdominal pain secondary to her fibroids. Patient states when she awoke this morning, the pain had moved to her left flank area. Patient decided to come to the emergency room after researching on [employer] what the cause of her pain might be. Patient states she thought she might have cancer or might be having a heart attack. Patient states when she arrived to the emergency room, her anxiety kicked in and states that she is now having an anxiety attack. Patient reports she is still having this left upper flank pain. She denies any fever, cough, leg pain, swelling. She reports a pleuritic component of the pain. Patient states she does not take anything for her anxiety and has been noncompliant with her blood pressure medication. MD Complaint: abdominal pain -: This morning Location: L flank Radiation: none Migration to: no migration Severity: moderate Severity scale (0 -10): 4 Quality: sharp Consistency: constant Improves With: nothing Worsens With: other (Deep breath) Associated Symptoms: denies: nausea, vomiting, diarrhea, fever, chills, dysuria, hematuria - Related Data Previous Rx's Medication Instructions Recorded Last Taken Type Famotidine [Pepcid] 20 mg PO BID #30 tablet 07/28/18 Unknown Rx HYDROcodone/APAP 5-325 [[place] 1 each PO Q6HR PRN #14 tablet 02/21/19 Unknown Rx 5/325] Ibuprofen [Motrin] 800 mg PO Q8HR PRN #30 tablet 02/21/19 Unknown Rx Butalb/Acetaminophen/Caffeine 1 cap PO Q8HR PRN #10 cap 10/18/19 Unknown Rx [Fioricet 50-300-40 mg CAP] amLODIPine 10 mg PO DAILY #30 tab 10/18/19 Unknown Rx Allergies Allergy/AdvReac Type Severity Reaction Status Date / Time No Known Allergies Allergy Verified 05/31/20 10:39 ED Review of Systems ROS: Stated complaint: NUMBNESS Other details as noted in HPI Comment: All other systems reviewed and negative Constitutional: denies: chills, fever Respiratory: denies: shortness of breath Cardiovascular: chest pain Gastrointestinal: abdominal pain. denies: nausea, vomiting Musculoskeletal: other (Denies leg pain or swelling) Psychiatric: anxiety ED Past Medical Hx - Past Medical History Hx Hypertension: Yes Additional medical history: Vaginal delivery x 4/ THYROID - Surgical History Additional Surgical History: tubal ligation - Social History Smoking Status: Current Every Day Smoker Substance Use Type: Alcohol, Marijuana - Medications Home Medications: Home Medications Medication Instructions Recorded Confirmed Last Taken Type Famotidine [Pepcid] 20 mg PO BID #30 tablet 07/28/18 Unknown Rx HYDROcodone/APAP 5-325 [[place] 1 each PO Q6HR PRN #14 tablet 02/21/19 Unknown Rx 5/325] Ibuprofen [Motrin] 800 mg PO Q8HR PRN #30 tablet 02/21/19 Unknown Rx Butalb/Acetaminophen/Caffeine 1 cap PO Q8HR PRN #10 cap 10/18/19 Unknown Rx [Fioricet 50-300-40 mg CAP] amLODIPine 10 mg PO DAILY #30 tab 10/18/19 Unknown Rx ED Physical Exam - General Limitations: No Limitations General appearance: alert, anxious - Head Head exam: Present: atraumatic, normocephalic - Eye Eye exam: Present: normal appearance, EOMI - ENT ENT exam: Present: mucous membranes moist - Neck Neck exam: Present: normal inspection - Respiratory Respiratory exam: Present: normal lung sounds bilaterally. Absent: respiratory distress - Cardiovascular Cardiovascular Exam: Present: normal rhythm, tachycardia - GI/Abdominal GI/Abdominal exam: Present: soft. Absent: distended, tenderness - Extremities Exam Extremities exam: Present: normal inspection. Absent: pedal edema, calf tenderness - Neurological Exam Neurological exam: Present: alert, oriented X3 - Psychiatric Psychiatric exam: Present: anxious - Skin Skin exam: Present: warm, dry, intact, normal color ED Course Vital Signs 05/31/20 05/31/20 05/31/20 10:42 11:13 12:03 Temperature Pulse Rate 168 H 121 H 116 H Respiratory 32 H 24 20 Rate Blood Pressure Blood Pressure 180/148 172/121 175/124 [Right] O2 Sat by Pulse 95 100 99 Oximetry 05/31/20 05/31/20 05/31/20 12:30 13:22 13:29 Temperature 98 F Pulse Rate 116 H 113 H Respiratory 20 18 Rate Blood Pressure Blood Pressure 167/98 204/124 [Right] O2 Sat by Pulse 99 Oximetry 05/31/20 05/31/20 05/31/20 13:35 14:15 14:54 Temperature Pulse Rate 103 H 102 H 108 H Respiratory 22 28 H Rate Blood Pressure 196/116 Blood Pressure 168/110 170/114 [Right] O2 Sat by Pulse 98 97 Oximetry 05/31/20 16:23 Temperature Pulse Rate 101 H Respiratory 25 H Rate Blood Pressure Blood Pressure 171/96 [Right] O2 Sat by Pulse 95 Oximetry ED Medical Decision Making - Lab Data Result diagrams: 05/31/20 11:43 05/31/20 15:04 - EKG Data -: EKG Interpreted by Me EKG shows normal: sinus rhythm, axis, intervals, QRS complexes, ST-T waves Rate: tachycardia (rate 121) - EKG Data Interpretation: no acute changes - Radiology Data Radiology results: report reviewed, image reviewed - Medical Decision Making 34-year-old female presents to ED with left flank pain and anxiety. CTA chest was done secondary to elevated D-dimer as patient reported some pleuritic component to her left flank pain. CTA shows left-sided PE. Patient was started on a heparin drip. Patient also hypertensive, labetalol was given. Patient has white count of 18. CTA report states that there are some patchy airspace opacities that are concerning for infarcts. However with these airspace opacities and her elevated white count, blood culture was drawn and Rocephin and azithromycin given for possible infectious etiology. COVID-19 markers were also sent and COVID-19 test ordered. Patient is not hypoxic. Patient will be admitted to hospitalist, Dr Sexton, for further management. - Differential Diagnosis anxiety, PE, COVID Critical Care Time: Yes Critical care time in (mins) excluding proc time.: 35 Critical care attestation.: If time is entered above; I have spent that time in minutes in the direct care of this critically ill patient, excluding procedure time. Critical Care Time: 35 min ED Disposition Clinical Impression: Pulmonary embolism, Uncontrolled hypertension, Thyroid dysfunction, Hypomagnesemia, Hypokalemia, Suspected 2019 novel coronavirus infection, Anxiety Disposition: OP ADMIT IP TO THIS HOSP Is pt being admited?: Yes Condition: Stable
[2020-05-31 12:03] LABS: Basophils # (Auto) 0.1 K/mm3 (0.0-0.1); Basophils % (Auto) 0.4 % (0.0-1.8); Eosinophils # (Auto) 0.1 K/mm3 (0.0-0.4); Eosinophils % (Auto) 0.4 % (0.0-4.3); Hematocrit 43.3 % (30.3-42.9); Hemoglobin 14.1 gm/dl (10.1-14.3); Lymphocytes # (Auto) 2.5 K/mm3 (1.2-5.4); Lymphocytes % (Auto) 13.3 % (13.4-35.0); Mean Corpuscular HGB Conc 33 % (30-34); Monocytes % (Auto) 5.1 % (0.0-7.3); Platelet Count 261 K/mm3 (140-440); Red Blood Count 6.53 M/mm3 (3.65-5.03); Red Cell Distribution Width 16.7 % (13.2-15.2)
[2020-05-31 12:04] LABS: Mean Corpuscular Volume 66 fl (79-97)
[2020-05-31 12:15] LABS: INR 0.92 (0.87-1.13)
[2020-05-31 12:16] LABS: Partial Thromboplastin Time 27.3 Sec. (24.2-36.6)
[2020-05-31 12:23] LABS: Alanine Aminotransferase 7 units/L (7-56); Albumin 2.1 g/dL (3.9-5); Blood Urea Nitrogen 9 mg/dL (7-17); Hemolysis Index 0
[2020-05-31 12:39] LABS: BUN/Creatinine Ratio 18
[2020-05-31] MEDS ORDERED: POTASSIUM CHLORIDE ER 20 MEQ TAB PO ONE (12:42)
--- NOTE | 2020-05-31 12:55 | XRay Report ---
CHEST 1 VIEW INDICATION / CLINICAL INFORMATION: cp. COMPARISON: None available. FINDINGS: SUPPORT DEVICES: None. HEART / MEDIASTINUM: No significant abnormality. LUNGS / PLEURA: No significant pulmonary or pleural abnormality. No pneumothorax. ADDITIONAL FINDINGS: No significant additional findings. IMPRESSION: No acute pulmonary or pleural abnormality Signer Name: Chaz Peters MD FACR Signed: 05/31/2020 12:51 PM Workstation Name: [id number]
[2020-05-31] MEDS ORDERED: HEPARIN 10,000 UNITS/10 ML VIAL IV ONE (13:52)
[2020-05-31] MEDS ORDERED: HEPARIN 10,000 UNITS/10 ML VIAL IV PRN (13:52)
--- NOTE | 2020-05-31 13:59 | Cat Scan Report ---
CTA CHEST WITH CONTRAST INDICATION / CLINICAL INFORMATION: MAIN. TECHNIQUE: Axial CT images were obtained through the chest after injection of IV contrast. 3 plane [place] P and/or 3D reconstructions were produced. All CT scans at this location are performed using CT dose reduction for ALARA by means of automated exposure control. COMPARISON: None available. FINDINGS: PULMONARY ARTERIES: There are filling defects involving the left main pulmonary artery as well as the segmental and subsegmental pulmonary arteries of the lingula and left lower lobe. THORACIC AORTA: No significant abnormality. HEART: No significant abnormality. No right heart strain. Right Ventricle (RV) diameter (cm) = 3.8; L eft Ventricle (LV) diameter (cm) = 5.3; RV / LV ratio = 0.7 (abnormal > 0.9). ADENOPATHY: No significant adenopathy. LUNGS/PLEURA: Patchy peripheral airspace opacities are present within the left lower lobe and lingula . Right lung is clear. No pleural effusion or pneumothorax. ADDITIONAL FINDINGS: None. UPPER ABDOMEN: No acute findings. SKELETAL STRUCTURES: No significant osseous abnormality. IMPRESSION: 1. Acute pulmonary emboli of the left main pulmonary artery involving the segmental and subsegmental pulmonary arteries of the left lower lobe and lingula. 2. Patchy peripheral airspace opacities in the lingula and less so in the left lower lobe are concern ing for pulmonary infarctions. 3. Other findings as above Signer Name: Star Ravi MD Signed: 05/31/2020 1:55 PM Workstation Name: [id number]
[2020-05-31] MEDS ORDERED: MAGNESIUM SULFATE 2 GM/50 ML BAG IV ONE (14:30)
[2020-05-31] MEDS ORDERED: cefTRIAXone/NS 1 GM/50 ML 1 GM/50 ML BAG IV ONE (14:48)
[2020-05-31] MEDS ORDERED: AZITHROMYCIN 250 MG TAB PO ONE (14:48)
[2020-05-31] MEDS: HEPARIN/ 0.45% NACL DRIP 25,000 UNIT/500 ML BAG IV SCH (15:21)
[2020-05-31] MEDS ORDERED: MAGNESIUM HYDROXIDE (MOM) ORAL LIQD UDC PO PRN (15:24)
--- NOTE | 2020-05-31 15:40 | History and Physical Report ---
History of Present Illness Date of examination: 05/31/20 Date of admission: 05/31/2020 Chief complaint: Left Flank Pain History of present illness: 34-year-old -[place] female with known history of hypertension, anxiety and history of fibroid presenting to the emergency room today complaining of abdominal pain. Abdominal pain has been ongoing for the past 24 hours. Pain is said to be more in the left flank. She denies any hematuria or dysuria. She denies any diarrhea and no constipation. She has had some nausea and vomiting. Upon arrival in the emergency room patient was found to be quite anxious. She started having some pleuritic chest pain. She was tachycardic with heart rate in the 160s. Blood pressure was also quite elevated. Work-up in the emergency room reveals elevated D-dimer, leukocytosis, hypokalemia and CT angiogram was significant for pulmonary embolism and patchy peripheral airspace opacities. Patient is being admitted for pulmonary embolism and has been started on heparin drip. Past History Past Medical History: hypertension, pulmonary embolism Past Surgical History: Other (Tubal ligation,) Social history: smoking (Current daily smoker), alcohol abuse, other (Uses marijuana) Family history: no significant family history Medications and Allergies Allergies Allergy/AdvReac Type Severity Reaction Status Date / Time No Known Allergies Allergy Verified 05/31/20 10:39 Home Medications Medication Instructions Recorded Confirmed Last Taken Type Famotidine [Pepcid] 20 mg PO BID #30 tablet 07/28/18 Unknown Rx HYDROcodone/APAP 5-325 [[place] 1 each PO Q6HR PRN #14 tablet 02/21/19 Unknown Rx 5/325] Ibuprofen [Motrin] 800 mg PO Q8HR PRN #30 tablet 02/21/19 Unknown Rx Butalb/Acetaminophen/Caffeine 1 cap PO Q8HR PRN #10 cap 10/18/19 Unknown Rx [Fioricet 50-300-40 mg CAP] amLODIPine 10 mg PO DAILY #30 tab 10/18/19 Unknown Rx Active Meds: Active Medications Acetaminophen (Acetaminophen 325 Mg Tab) 650 mg PO Q4H PRN PRN Reason: Pain MILD(1-3)/Fever >100.5/YANG Heparin Sodium (Porcine) (Heparin 10,000 Units/10 Ml Vial) 2,900 unit 40 unit/kg (2900 unit) IV Q6H PRN PRN Reason: Anti-Xa Assay < 0.1 units/ml Heparin Sodium/Sodium Chloride (Heparin/ 0.45% Nacl-25,000 Unit/500 Ml) 25,000 unit in 500 mls @ 21 mls/hr IV TITR DONG; Protocol Last Admin: 05/31/20 15:21 Dose: 1,050 units/hr, 21 mls/hr Documented by: Magnesium Hydroxide (Magnesium Hydroxide (Mom) Oral Liqd Udc) 30 ml PO Q4H PRN PRN Reason: Constipation Morphine Sulfate (Morphine 2 Mg/1 Ml Inj) 2 mg IV Q4H PRN PRN Reason: Pain, Moderate (4-6) Ondansetron HCl (Ondansetron 4 Mg/2 Ml Inj) 4 mg IV Q8H PRN PRN Reason: Nausea And Vomiting Sodium Chloride (Sodium Chloride 0.9% 10 Ml Flush Syringe) 10 ml IV BID DONG Sodium Chloride (Sodium Chloride 0.9% 10 Ml Flush Syringe) 10 ml IV PRN PRN PRN Reason: LINE FLUSH Review of Systems Constitutional: no fever, no chills Ears, nose, mouth and throat: no nasal congestion, no sore throat Cardiovascular: chest pain, palpitations Respiratory: cough, shortness of breath, pain on inspiration, no congestion Gastrointestinal: nausea, vomiting, no abdominal pain, no diarrhea, no constipation Genitourinary Female: flank pain (Left Flank), no pelvic pain, no dysuria, no hematuria Musculoskeletal: no neck pain, no low back pain Integumentary: no rash, no pruritis Neurological: no headaches, no change in mentation Psychiatric: anxiety, no depression Exam - Constitutional Vitals: Temp Pulse Resp BP Pulse Ox 98 F 108 H 28 H 170/114 97 05/31/20 13:22 05/31/20 14:54 05/31/20 14:54 05/31/20 14:54 05/31/20 14:54 General appearance: Present: no acute distress, well-nourished - EENT Eyes: Present: PERRL, EOM intact. Absent: scleral icterus ENT: hearing intact, clear oral mucosa, dentition normal - Neck Neck: Present: supple, normal ROM - Respiratory Respiratory effort: normal Respiratory: left: diminished - Cardiovascular Rhythm: regular Heart Sounds: Present: S1 & S2. Absent: gallop, systolic murmur, diastolic murmur, rub, click - Extremities Extremities: no ischemia, pulses intact, pulses symmetrical, No edema, normal temperature, normal color, Full ROM Peripheral Pulses: within normal limits - Abdominal General gastrointestinal: Present: soft, non-tender, non-distended, normal bowel sounds. Absent: mass - Integumentary Integumentary: Present: clear, warm, dry. Absent: rash - Musculoskeletal Musculoskeletal: strength equal bilaterally - Psychiatric Psychiatric: appropriate mood/affect, intact judgment & insight, memory intact, cooperative - Neurologic Neurologic: CNII-XII intact, no focal deficits, moves all extremities HEART Score - HEART Score Troponin: Troponin T < 0.010 ng/mL (0.00-0.029) 05/31/20 11:43 Results - Labs CBC & Chem 7: 05/31/20 11:43 05/31/20 15:04 Labs: Abnormal lab results 05/31/20 05/31/20 05/31/20 Range/Units 11:43 11:43 11:43 WBC 18.8 H (4.5-11.0) K/mm3 RBC 6.53 H (3.65-5.03) M/mm3 Hct 43.3 H (30.3-42.9) % MCV 66 L (79-97) fl MCH 22 L (28-32) pg RDW 16.7 H (13.2-15.2) % Lymph % (Auto) 13.3 L (13.4-35.0) % [place] # (Auto) 1.0 H (0.0-0.8) K/mm3 Seg Neutrophils % 80.8 H (40.0-70.0) % Seg Neutrophils # 15.2 H (1.8-7.7) K/mm3 D-Dimer (0-234) ng/mlDDU Sodium (137-145) mmol/L Potassium (3.6-5.0) mmol/L Creatinine (0.6-1.2) mg/dL Glucose (65-100) mg/dL Calcium (8.4-10.2) mg/dL Magnesium (1.7-2.3) mg/dL Alkaline Phosphatase (35-129) units/L Total Protein (6.3-8.2) g/dL Albumin (3.9-5) g/dL TSH (0.270-4.200) mlU/mL Salicylates < 0.3 L (2.8-20.0) mg/dL Acetaminophen 5.0 L (10.0-30.0) ug/mL 05/31/20 05/31/20 05/31/20 Range/Units 11:43 11:43 11:43 WBC (4.5-11.0) K/mm3 RBC (3.65-5.03) M/mm3 Hct (30.3-42.9) % MCV (79-97) fl MCH (28-32) pg RDW (13.2-15.2) % Lymph % (Auto) (13.4-35.0) % [place] # (Auto) (0.0-0.8) K/mm3 Seg Neutrophils % (40.0-70.0) % Seg Neutrophils # (1.8-7.7) K/mm3 D-Dimer 5519.88 H (0-234) ng/mlDDU Sodium 134 L (137-145) mmol/L Potassium 2.8 L* (3.6-5.0) mmol/L Creatinine 0.5 L (0.6-1.2) mg/dL Glucose 138 H (65-100) mg/dL Calcium 8.0 L (8.4-10.2) mg/dL Magnesium (1.7-2.3) mg/dL Alkaline Phosphatase 180 H (35-129) units/L Total Protein 6.2 L (6.3-8.2) g/dL Albumin 2.1 L (3.9-5) g/dL TSH < 0.005 L (0.270-4.200) mlU/mL Salicylates (2.8-20.0) mg/dL Acetaminophen (10.0-30.0) ug/mL 05/31/20 Range/Units 13:20 WBC (4.5-11.0) K/mm3 RBC (3.65-5.03) M/mm3 Hct (30.3-42.9) % MCV (79-97) fl MCH (28-32) pg RDW (13.2-15.2) % Lymph % (Auto) (13.4-35.0) % [place] # (Auto) (0.0-0.8) K/mm3 Seg Neutrophils % (40.0-70.0) % Seg Neutrophils # (1.8-7.7) K/mm3 D-Dimer (0-234) ng/mlDDU Sodium (137-145) mmol/L Potassium (3.6-5.0) mmol/L Creatinine (0.6-1.2) mg/dL Glucose (65-100) mg/dL Calcium (8.4-10.2) mg/dL Magnesium 1.50 L (1.7-2.3) mg/dL Alkaline Phosphatase (35-129) units/L Total Protein (6.3-8.2) g/dL Albumin (3.9-5) g/dL TSH (0.270-4.200) mlU/mL Salicylates (2.8-20.0) mg/dL Acetaminophen (10.0-30.0) ug/mL Assessment and Plan - Patient Problems (1) Pulmonary embolism Current Visit: Yes Status: Acute Plan to address problem: Patient has been started on heparin drip according to protocol. We will also place consult to vascular surgery for evaluation. (2) Suspected 2019 novel coronavirus infection Current Visit: Yes Status: Acute Plan to address problem: Patient placed on isolation precautions. We await COVID-19 testing. Patient currently placed on empiric IV antibiotics. Consult placed to infectious disease for evaluation and recommendation. (3) Hypomagnesemia Current Visit: Yes Status: Acute Plan to address problem: Admission will be repleted and will monitor chemistry. (4) Hypokalemia Current Visit: Yes Status: Acute Plan to address problem: Potassium will be repleted and will monitor chemistry. (5) Hypertension Current Visit: No Status: Acute Plan to address problem: Patient will be placed on antihypertensive and will monitor vital signs closely. (6) Full code status Current Visit: Yes Status: Acute Plan to address problem: Patient is a full code.
[2020-05-31 16:15] LABS: C-Reactive Protein 5.6 mg/dL (0.00-1.30)
[2020-05-31] MEDS: AZITHROMYCIN/NS 500 MG/250 ML 500 MG/250 ML BAG IV SCH (16:46)
[2020-05-31] MEDS: MORPHINE 2 MG/1 ML INJ IV PRN ×2 (16:46→21:06)
[2020-05-31] MEDS: ONDANSETRON 4 MG/2 ML INJ IV PRN (16:46)
--- NOTE | 2020-05-31 18:29 | Consultation ---
History of Present Illness - Reason for Consult Consult date: 05/31/20 R/o COVID Requesting physician: ILIANA [place] - History of Present Illness 34 years old female with history of anxiety, hypertension, fibroids, admitted on 05/31/2020 secondary to lower abdominal pain for 24 hours. Patient. Her pain is due to her fibroids. Pain is mainly in the left flank and left chest and is 8 out of 10. Patient denies any fever, cough. Patient also reported anxiety. In the ED, temperature 98.3, HR 168, RR 32, O2 sat 95%, BP 180/148. Initial WBC 18.8. Hemoglobin 14.1 platelets 261. D-dimer 5519. Ferritin 206. CRP 5.6. Potassium 2.8. Blood cultures 05/31/[address] chest shows pulmonary embolism in the left main, patchy airspace disease in the lingula and left lung. Patient currently on room air. Review of Systems: reviewed ED and H&P notes. Review of system deferred to minimize COVID-19 transmission. Past History Past Medical History: hypertension, pulmonary embolism Past Surgical History: Other (Tubal ligation,) Social history: smoking (Current daily smoker), alcohol abuse, other (Uses marijuana) Family history: no significant family history Medications and Allergies Allergies Allergy/AdvReac Type Severity Reaction Status Date / Time No Known Allergies Allergy Verified 05/31/20 10:39 Home Medications Medication Instructions Recorded Confirmed Last Taken Type Famotidine [Pepcid] 20 mg PO BID #30 tablet 07/28/18 Unknown Rx HYDROcodone/APAP 5-325 [[place] 1 each PO Q6HR PRN #14 tablet 02/21/19 Unknown Rx 5/325] Ibuprofen [Motrin] 800 mg PO Q8HR PRN #30 tablet 02/21/19 Unknown Rx Butalb/Acetaminophen/Caffeine 1 cap PO Q8HR PRN #10 cap 10/18/19 Unknown Rx [Fioricet 50-300-40 mg CAP] amLODIPine 10 mg PO DAILY #30 tab 10/18/19 Unknown Rx Active Meds: Active Medications Acetaminophen (Acetaminophen 325 Mg Tab) 650 mg PO Q4H PRN PRN Reason: Pain MILD(1-3)/Fever >100.5/YANG Heparin Sodium (Porcine) (Heparin 10,000 Units/10 Ml Vial) 2,900 unit 40 unit/kg (2900 unit) IV Q6H PRN PRN Reason: Anti-Xa Assay < 0.1 units/ml Heparin Sodium/Sodium Chloride (Heparin/ 0.45% Nacl-25,000 Unit/500 Ml) 25,000 unit in 500 mls @ 21 mls/hr IV TITR DONG; Protocol Last Admin: 05/31/20 15:21 Dose: 1,050 units/hr, 21 mls/hr Documented by: Ceftriaxone Sodium (Rocephin/Ns 2 Gm/100 Ml) 2 gm in 100 mls @ 200 mls/hr IV Q24H DONG; Protocol Azithromycin (Zithromax/Ns) 500 mg in 250 mls @ 250 mls/hr IV Q24H DONG Last Admin: 05/31/20 16:46 Dose: 250 mls/hr Documented by: Magnesium Hydroxide (Magnesium Hydroxide (Mom) Oral Liqd Udc) 30 ml PO Q4H PRN PRN Reason: Constipation Morphine Sulfate (Morphine 2 Mg/1 Ml Inj) 2 mg IV Q4H PRN PRN Reason: Pain, Moderate (4-6) Last Admin: 05/31/20 16:46 Dose: 2 mg Documented by: Ondansetron HCl (Ondansetron 4 Mg/2 Ml Inj) 4 mg IV Q8H PRN PRN Reason: Nausea And Vomiting Last Admin: 05/31/20 16:46 Dose: 4 mg Documented by: Sodium Chloride (Sodium Chloride 0.9% 10 Ml Flush Syringe) 10 ml IV BID DONG Sodium Chloride (Sodium Chloride 0.9% 10 Ml Flush Syringe) 10 ml IV PRN PRN PRN Reason: LINE FLUSH Physical Examination - Physical Exam Narrative exam: Physical exam deferred to minimize COVID-19 transmission during pandemic. ER and internal medicine physical examination notes reviewed. - Constitutional Vitals: Vital Signs Temp Pulse Resp BP Pulse Ox 98.3 F 101 H 25 H 171/96 95 05/31/20 17:20 05/31/20 17:20 05/31/20 17:20 05/31/20 17:20 05/31/20 17:20 Temperature -Last 24 Hours Temperature 98.3 F Temperature 98 F Results - Labs CBC & Chem 7: 05/31/20 11:43 05/31/20 15:04 Labs: Abnormal lab results 0105/31/20 05/31/20 Range/Units 11:43 11:43 11:43 WBC 18.8 H (4.5-11.0) K/mm3 RBC 6.53 H (3.65-5.03) M/mm3 Hct 43.3 H (30.3-42.9) % MCV 66 L (79-97) fl MCH 22 L (28-32) pg RDW 16.7 H (13.2-15.2) % Lymph % (Auto) 13.3 L (13.4-35.0) % [place] # (Auto) 1.0 H (0.0-0.8) K/mm3 Seg Neutrophils % 80.8 H (40.0-70.0) % Seg Neutrophils # 15.2 H (1.8-7.7) K/mm3 D-Dimer (0-234) ng/mlDDU Sodium (137-145) mmol/L Potassium (3.6-5.0) mmol/L Creatinine (0.6-1.2) mg/dL Glucose (65-100) mg/dL Calcium (8.4-10.2) mg/dL Magnesium (1.7-2.3) mg/dL Ferritin (10.0-200.0) ng/mL Alkaline Phosphatase (35-129) units/L Lactate Dehydrogenase (91-180) units/L C-Reactive Protein (0.00-1.30) mg/dL Total Protein (6.3-8.2) g/dL Albumin (3.9-5) g/dL TSH (0.270-4.200) mlU/mL Salicylates < 0.3 L (2.8-20.0) mg/dL Acetaminophen 5.0 L (10.0-30.0) ug/mL 05/31/20 05/31/20 05/31/20 Range/Units 11:43 11:43 11:43 WBC (4.5-11.0) K/mm3 RBC (3.65-5.03) M/mm3 Hct (30.3-42.9) % MCV (79-97) fl MCH (28-32) pg RDW (13.2-15.2) % Lymph % (Auto) (13.4-35.0) % [place] # (Auto) (0.0-0.8) K/mm3 Seg Neutrophils % (40.0-70.0) % Seg Neutrophils # (1.8-7.7) K/mm3 D-Dimer 5519.88 H (0-234) ng/mlDDU Sodium 134 L (137-145) mmol/L Potassium 2.8 L* (3.6-5.0) mmol/L Creatinine 0.5 L (0.6-1.2) mg/dL Glucose 138 H (65-100) mg/dL Calcium 8.0 L (8.4-10.2) mg/dL Magnesium (1.7-2.3) mg/dL Ferritin (10.0-200.0) ng/mL Alkaline Phosphatase 180 H (35-129) units/L Lactate Dehydrogenase (91-180) units/L C-Reactive Protein (0.00-1.30) mg/dL Total Protein 6.2 L (6.3-8.2) g/dL Albumin 2.1 L (3.9-5) g/dL TSH < 0.005 L (0.270-4.200) mlU/mL Salicylates (2.8-20.0) mg/dL Acetaminophen (10.0-30.0) ug/mL 05/31/20 05/31/20 05/31/20 Range/Units 13:20 15:04 15:04 WBC (4.5-11.0) K/mm3 RBC (3.65-5.03) M/mm3 Hct (30.3-42.9) % MCV (79-97) fl MCH (28-32) pg RDW (13.2-15.2) % Lymph % (Auto) (13.4-35.0) % Dillon # (Auto) (0.0-0.8) K/mm3 Seg Neutrophils % (40.0-70.0) % Seg Neutrophils # (1.8-7.7) K/mm3 D-Dimer (0-234) ng/mlDDU Sodium (137-145) mmol/L Potassium (3.6-5.0) mmol/L Creatinine (0.6-1.2) mg/dL Glucose 114 H (65-100) mg/dL Calcium (8.4-10.2) mg/dL Magnesium 1.50 L (1.7-2.3) mg/dL Ferritin 206.5 H (10.0-200.0) ng/mL Alkaline Phosphatase (35-129) units/L Lactate Dehydrogenase 864 H (91-180) units/L C-Reactive Protein 5.60 H (0.00-1.30) mg/dL Total Protein (6.3-8.2) g/dL Albumin (3.9-5) g/dL TSH (0.270-4.200) mlU/mL Salicylates (2.8-20.0) mg/dL Acetaminophen (10.0-30.0) ug/mL Assessment and Plan Cultures: Blood culture no growth today SARS CoV2 PCR pending Assessment: 34 years old female with history ascites, hypertension, fibroids, admitted on 05/31/2020 secondary to left lower abdominal pain and left chest for 24 hours: #SIRS rule out sepsis: Present on admission with tachycardia, leukocytosis, source likely left-sided pneumonia and PE #Left-sided pneumonia: Associated with pulmonary emboli, likely COVID-19 infect ion. D-dimer 5519. Ferritin 206. CRP 5.6. Patient is on room air. No hypoxia. #Left main pulmonary emboli Recommendations: -Obtain UA -Obtain procalcitonin -No indication for dexamethasone or remdesivir given lack of hypoxia -Follow-up SARS-CoV-2 PCR -Obtain 6-minute walking test to determine ambulatory hypoxia if SARS-CoV-2 PCR is positive and O2 sat dropped please start dexamethasone, if sustained hypoxia requiring more than 2 L of nasal cannula please start remdesivir -Monitor inflammatory markers - ferritin, Ddimer, CRP, LDH -Continue anticoagulation per System Protocol -Prone positioning as possible -Obtain SARS CoV-2 IgG to determine length of infection -Continue ceftriaxone and azithromycin All laboratory, cultures and imaging were reviewed. Will follow Richelle Lancaster MD Infectious Diseases [employer] Architect [facility] M [phone] O [phone]
[2020-05-31] MEDS ORDERED: POTASSIUM CHLORIDE 10 MEQ 10 MEQ/100 ML BAG IV ONE (20:32)
[2020-05-31] MEDS: hydrALAZINE 20 MG/1 ML INJ IV PRN (23:46)
[2020-06-01] MEDS: MORPHINE 2 MG/1 ML INJ IV PRN ×4 (03:09→14:10)
[2020-06-01 06:28] LABS: Basophils # (Auto) 0.1 K/mm3 (0.0-0.1); Basophils % (Auto) 0.4 % (0.0-1.8); Eosinophils % (Auto) 0.1 % (0.0-4.3); Hematocrit 42.1 % (30.3-42.9); Hemoglobin 13.3 gm/dl (10.1-14.3); Lymphocytes % (Auto) 17.7 % (13.4-35.0); Mean Corpuscular HGB Conc 32 % (30-34); Monocytes # (Auto) 1.3 K/mm3 (0.0-0.8); Monocytes % (Auto) 7.9 % (0.0-7.3); Platelet Count 249 K/mm3 (140-440); Red Cell Distribution Width 16.6 % (13.2-15.2)
[2020-06-01 06:34] LABS: Mean Corpuscular Volume 67 fl (79-97)
[2020-06-01 06:38] LABS: INR 1.01 (0.87-1.13)
[2020-06-01 07:00] LABS: BUN/Creatinine Ratio 22; Blood Urea Nitrogen 11 mg/dL (7-17); Calcium 7.7 mg/dL (8.4-10.2); Hemolysis Index 3
--- NOTE | 2020-06-01 08:51 | Progress Note ---
Assessment and Plan Cultures: Blood culture no growth today SARS CoV2 PCR pending SARS CoV2 IgG negative Assessment: 34 years old female with history ascites, hypertension, fibroids, admitted on 05/31/2020 secondary to left lower abdominal pain and left chest for 24 hours: #SIRS rule out sepsis: Present on admission with tachycardia, leukocytosis, source likely left-sided pneumonia and PE #Left-sided pneumonia: Associated with pulmonary emboli, likely COVID-19 infection. SARS-CoV-2 PCR pending. D-dimer 5519. Ferritin 206. CRP 5.6. Briefly on 3 L nasal cannula. Patient is on room air. No sustained hypoxia. #Left main pulmonary emboli: On heparin drip. Recommendations: -Obtain UA, pending -Obtain procalcitonin, pending -Follow-up SARS-CoV-2 PCR -Obtain 6-minute walking test to determine ambulatory hypoxia if SARS-CoV-2 PCR is positive and O2 sat drop please start dexamethasone, if sustained hypoxia requiring more than 2 L of nasal cannula please start remdesivir -Monitor inflammatory markers - ferritin, Ddimer, CRP, LDH -Continue anticoagulation per System Protocol, on heparin drip -Prone positioning as possible -Obtain SARS CoV-2 IgG to determine length of infection -Continue ceftriaxone and azithromycin. Okay to stop. Procalcitonin is low All laboratory, cultures and imaging were reviewed. Dr. Sage rounding this weekend Will follow Richelle Lancaster MD Infectious Diseases Room Designer [facility] M [phone] O [phone] Subjective Date of service: 06/01/20 Principal diagnosis: Rule out COVID-19 Interval history: Patient was placed on 3 L nasal cannula overnight, O2 sat dropped to 95%, curren tly on room air. Remains tachycardic on monitor. On heparin drip. No fever Objective - Exam Narrative Exam: Physical exam deferred to minimize COVID-19 transmission during pandemic. ER and internal medicine physical examination notes reviewed. - Constitutional Vitals: Vital Signs Temp Pulse Resp BP Pulse Ox 98.6 F 122 H 20 131/94 98 06/01/20 04:47 06/01/20 04:47 06/01/20 04:47 06/01/20 04:47 06/01/20 04:47 Temperature -Last 24 Hours Temperature 98.6 F Temperature 98.3 F Temperature 98.3 F Temperature 98 F - Labs CBC & Chem 7: 06/01/20 04:30 06/01/20 04:30 Labs: Abnormal lab results 05/31/20 05/31/20 05/31/20 Range/Units 11:43 11:43 11:43 WBC 18.8 H (4.5-11.0) K/mm3 RBC 6.53 H (3.65-5.03) M/mm3 Hct 43.3 H (30.3-42.9) % MCV 66 L (79-97) fl MCH 22 L (28-32) pg RDW 16.7 H (13.2-15.2) % Lymph % (Auto) 13.3 L (13.4-35.0) % [place] % (Auto) (0.0-7.3) % [place] # (Auto) 1.0 H (0.0-0.8) K/mm3 Seg Neutrophils % 80.8 H (40.0-70.0) % Seg Neutrophils # 15.2 H (1.8-7.7) K/mm3 D-Dimer (0-234) ng/mlDDU Sodium (137-145) mmol/L Potassium (3.6-5.0) mmol/L Creatinine (0.6-1.2) mg/dL Glucose (65-100) mg/dL POC Glucose (70-105) mg/dL Calcium (8.4-10.2) mg/dL Magnesium (1.7-2.3) mg/dL Ferritin (10.0-200.0) ng/mL Alkaline Phosphatase (35-129) units/L Lactate Dehydrogenase (91-180) units/L C-Reactive Protein (0.00-1.30) mg/dL Total Protein (6.3-8.2) g/dL Albumin (3.9-5) g/dL TSH (0.270-4.200) mlU/mL Salicylates < 0.3 L (2.8-20.0) mg/dL Acetaminophen 5.0 L (10.0-30.0) ug/mL 05/31/20 05/31/20 05/31/20 Range/Units 11:43 11:43 11:43 WBC (4.5-11.0) K/mm3 RBC (3.65-5.03) M/mm3 Hct (30.3-42.9) % MCV (79-97) fl MCH (28-32) pg RDW (13.2-15.2) % Lymph % (Auto) (13.4-35.0) % [place] % (Auto) (0.0-7.3) % [place] # (Auto) (0.0-0.8) K/mm3 Seg Neutrophils % (40.0-70.0) % Seg Neutrophils # (1.8-7.7) K/mm3 D-Dimer 5519.88 H (0-234) ng/mlDDU Sodium 134 L (137-145) mmol/L Potassium 2.8 L* (3.6-5.0) mmol/L Creatinine 0.5 L (0.6-1.2) mg/dL Glucose 138 H (65-100) mg/dL POC Glucose (70-105) mg/dL Calcium 8.0 L (8.4-10.2) mg/dL Magnesium (1.7-2.3) mg/dL Ferritin (10.0-200.0) ng/mL Alkaline Phosphatase 180 H (35-129) units/L Lactate Dehydrogenase (91-180) units/L C-Reactive Protein (0.00-1.30) mg/dL Total Protein 6.2 L (6.3-8.2) g/dL Albumin 2.1 L (3.9-5) g/dL TSH < 0.005 L (0.270-4.200) mlU/mL Salicylates (2.8-20.0) mg/dL Acetaminophen (10.0-30.0) ug/mL 05/31/20 05/31/20 05/31/20 Range/Units 13:20 15:04 15:04 WBC (4.5-11.0) K/mm3 RBC (3.65-5.03) M/mm3 Hct (30.3-42.9) % MCV (79-97) fl MCH (28-32) pg RDW (13.2-15.2) % Lymph % (Auto) (13.4-35.0) % [place] % (Auto) (0.0-7.3) % [place] # (Auto) (0.0-0.8) K/mm3 Seg Neutrophils % (40.0-70.0) % Seg Neutrophils # (1.8-7.7) K/mm3 D-Dimer (0-234) ng/mlDDU Sodium (137-145) mmol/L Potassium (3.6-5.0) mmol/L Creatinine (0.6-1.2) mg/dL Glucose 114 H (65-100) mg/dL POC Glucose (70-105) mg/dL Calcium (8.4-10.2) mg/dL Magnesium 1.50 L (1.7-2.3) mg/dL Ferritin 206.5 H (10.0-200.0) ng/mL Alkaline Phosphatase (35-129) units/L Lactate Dehydrogenase 864 H (91-180) units/L C-Reactive Protein 5.60 H (0.00-1.30) mg/dL Total Protein (6.3-8.2) g/dL Albumin (3.9-5) g/dL TSH (0.270-4.200) mlU/mL Salicylates (2.8-20.0) mg/dL Acetaminophen (10.0-30.0) ug/mL 05/31/20 06/01/20 06/01/20 Range/Units 22:00 04:30 04:30 WBC 16.7 H (4.5-11.0) K/mm3 RBC 6.30 H (3.65-5.03) M/mm3 Hct (30.3-42.9) % MCV 67 L (79-97) fl MCH 21 L (28-32) pg RDW 16.6 H (13.2-15.2) % Lymph % (Auto) (13.4-35.0) % [place] % (Auto) 7.9 H (0.0-7.3) % [place]imer # (Auto) 1.3 H (0.0-0.8) K/mm3 Seg Neutrophils % 73.9 H (40.0-70.0) % Seg Neutrophils # 12.4 H (1.8-7.7) K/mm3 D-Dimer (0-234) ng/mlDDU Sodium 133 L (137-145) mmol/L Potassium (3.6-5.0) mmol/L Creatinine 0.5 L (0.6-1.2) mg/dL Glucose 144 H (65-100) mg/dL POC Glucose 150 H (70-105) mg/dL Calcium 7.7 L (8.4-10.2) mg/dL Magnesium (1.7-2.3) mg/dL Ferritin (10.0-200.0) ng/mL Alkaline Phosphatase (35-129) units/L Lactate Dehydrogenase (91-180) units/L C-Reactive Protein (0.00-1.30) mg/dL Total Protein (6.3-8.2) g/dL Albumin (3.9-5) g/dL TSH (0.270-4.200) mlU/mL Salicylates (2.8-20.0) mg/dL Acetaminophen (10.0-30.0) ug/mL
[2020-06-01] MEDS: ONDANSETRON 4 MG/2 ML INJ IV PRN (10:42)
[2020-06-01] MEDS ORDERED: HEPARIN 10,000 UNITS/10 ML VIAL IV ONE (11:00)
[2020-06-01] MEDS ORDERED: ONDANSETRON 4 MG/2 ML INJ IV PRN (13:38)
[2020-06-01 14:12] LABS: Bacteria,Urine 1+ /HPF (Negative); Bilirubin,Urine NEG (Negative); Blood,Urine MOD (Negative); Color,Urine Amber (Yellow); Hyaline Casts,Urine 3 /LPF; Urobilinogen,Urine < 2.0 mg/dL (<2.0)
[2020-06-01 14:16] LABS: Protein,Urine >500 mg/dL (Negative)
[2020-06-01 14:19] LABS: Amphetamine Screen,Urine Negative; Benzodiazepines Screen,Urine Negative; Cocaine Screen,Urine Negative; Methadone Screen,Urine Negative
[2020-06-01 14:37] LABS: Cannabinoid Screen,Urine Positive; Opiate Screen,Urine Positive
[2020-06-01] MEDS ORDERED: cefTRIAXone/NS 2 GM/100 ML 2 GM/100 ML BAG IV SCH (16:00)
[2020-06-01] MEDS: KETOROLAC 30 MG/1 ML INJ IV PRN (16:07)
[2020-06-01] MEDS: AZITHROMYCIN/NS 500 MG/250 ML 500 MG/250 ML BAG IV SCH (18:31)
[2020-06-01] MEDS: HEPARIN/ 0.45% NACL DRIP 25,000 UNIT/500 ML BAG IV SCH (18:31)
[2020-06-01] MEDS: ACETAMINOPHEN 325 MG TAB PO PRN (20:18)
[2020-06-02] MEDS: KETOROLAC 30 MG/1 ML INJ IV PRN ×2 (01:43→07:39)
[2020-06-02 03:52] LABS: Hematocrit 37.4 % (30.3-42.9); Hemoglobin 11.7 gm/dl (10.1-14.3)
[2020-06-02] MEDS: hydrALAZINE 20 MG/1 ML INJ IV PRN ×2 (06:00→12:39)
[2020-06-02] MEDS: MORPHINE 2 MG/1 ML INJ IV PRN (06:01)
[2020-06-02] MEDS ORDERED: APIXABAN 5 MG TAB PO SCH (10:00)
[2020-06-02] MEDS: ACETAMINOPHEN 325 MG TAB PO PRN ×2 (12:31→17:04)
[2020-06-02 14:46] VITALS: BP 156/95
--- NOTE | 2020-06-02 16:54 | Progress Note ---
Assessment and Plan Assessment and Plan - Patient Problems (1) Pulmonary embolism Current Visit: Yes Status: Acute Plan to address problem: Patient on heparin drip We will switch to Eliquis tomorrow (2) Suspected 2019 novel coronavirus infection Current Visit: Yes Status: Acute Plan to address problem: Coronavirus PCR ruled out (3) Hypomagnesemia Current Visit: Yes Status: Acute Plan to address problem: Resolved (4) Hypokalemia Current Visit: Yes Status: Acute Plan to address problem: Resolved (5) Hypertension Current Visit: No Status: Acute Plan to address problem: Blood pressure under control (6) Full code status Current Visit: Yes Status: Acute Plan to address problem: Patient is a full code. Subjective Date of service: 06/01/20 Principal diagnosis: Acute pulmonary embolism Interval history: 34-year-old -[place] female with known history of hypertension, anxiety and history of fibroid presenting to the emergency room today complaining of abdominal pain. Abdominal pain has been ongoing for the past 24 hours. Pain is said to be more in the left flank. She denies any hematuria or dysuria. She denies any diarrhea and no constipation. She has had some nausea and vomiting. Upon arrival in the emergency room patient was found to be quite anxious. She started having some pleuritic chest pain. She was tachycardic with heart rate in the 160s. Blood pressure was also quite elevated. Work-up in the emergency room reveals elevated D-dimer, leukocytosis, hypokalemia and CT angiogram was significant for pulmonary embolism and patchy peripheral airspace opacities. Patient is being admitted for pulmonary embolism and has been started on heparin drip. Day #2 06/01/2020 Patient still short of breath Coronavirus PCR negative Mild distress Objective - Constitutional Vitals: Vital Signs - 12hr 06/02/20 06/02/20 06/02/20 06:00 08:46 09:00 Temperature Pulse Rate 101 H 130 H Respiratory 20 20 Rate Blood Pressure 166/106 124/83 O2 Sat by Pulse 100 Oximetry 06/02/20 06/02/20 06/02/20 09:06 12:25 14:45 Temperature 99.3 F 98.9 F Pulse Rate 122 H 129 H Respiratory 18 18 Rate Blood Pressure 166/95 156/95 O2 Sat by Pulse 100 100 Oximetry General appearance: Present: mild distress - EENT Eyes: PERRL, EOM intact ENT: hearing intact, clear oral mucosa Ears: bilateral: normal - Neck Neck: supple, normal ROM - Respiratory Respiratory effort: normal Respiratory: bilateral: CTA - Breasts Breasts: normal - Cardiovascular Heart rate: 100 Rhythm: regular Heart Sounds: Present: S1 & S2. Absent: gallop, rub Extremities: pulses intact, No edema, normal color, Full ROM - Gastrointestinal General gastrointestinal: Present: soft, non-tender, non-distended, normal bowel sounds - Genitourinary Female genitourinary: normal - Integumentary Integumentary: clear, warm, dry - Musculoskeletal Musculoskeletal: 1, strength equal bilaterally - Neurologic Neurologic: moves all extremities - Psychiatric Psychiatric: memory intact, appropriate mood/affect, intact judgment & insight - Labs CBC & Chem 7: 06/02/20 03:38 06/01/20 04:30 Labs: Abnormal lab results 06/01/20 06/02/20 06/02/20 Range/Units 18:03 00:49 07:25 Heparin Anti-Xa Level 0.10 L 0.15 L < 0.10 L (0.3-0.7) U.I./ml CTA of the chest Acute pulmonary emboli of the left main pulmonary artery involving the segmental and subsegmental pulmonary arteries of the left lower lobe and lingula. Patchy peripheral airspace opacities in the lingula and less so in the left lower lobe are concerning for pulmonary infarctions Other findings as above - Imaging and cardiology EKG: report reviewed (Sinus tachycardia) HEART Score - HEART Score Troponin: Troponin T < 0.010 ng/mL (0.00-0.029) 05/31/20 11:43
--- NOTE | 2020-06-02 17:07 | Discharge Summary ---
Providers - Providers Date of Admission: 06/01/20 12:37 Date of discharge: 06/02/20 Attending physician: KALI NICOLAS 05/31/20 15:24 Consult to Physician [CONS] Routine Comment: Consulting Provider: MARIYA JULES Physician Instructions: Reason For Exam: Cough, Generalized Weakness- R/O Covid -19 Primary care physician: TELEGRAPHIC TYPEWRITER MECHANIC Hospitalization Condition: Stable Hospital course: Subjective Date of service: 06/02/20 Principal diagnosis: Acute pulmonary embolism Interval history: 34-year-old -Malag[place] female with known history of hypertension, anxiety and history of fibroid presenting to the emergency room today complaining of abdominal pain. Abdominal pain has been ongoing for the past 24 hours. Pain is said to be more in the left flank. She denies any hematuria or dysuria. She denies any diarrhea and no constipation. She has had some nausea and vomiting. Upon arrival in the emergency room patient was found to be quite anxious. She started having some pleuritic chest pain. She was tachycardic with heart rate in the 160s. Blood pressure was also quite elevated. Work-up in the emergency room reveals elevated D-dimer, leukocytosis, hypokalemia and CT angiogram was significant for pulmonary embolism and patchy peripheral airspace opacities. Patient is being admitted for pulmonary embolism and has been started on heparin drip. Day #2 06/01/2020 Patient still short of breath Coronavirus PCR negative Mild distress Day #3 Patient is symptomatically a lot better Tachycardic secondary to PE Patient be discharged on Eliquis Dosepak which she has to take for at least 6 months Assessment and Plan - Patient Problems (1) Pulmonary embolism Current Visit: Yes Status: Acute Plan to address problem: Patient on heparin drip We will switch to Eliquis tomorrow (2) Suspected 2019 novel coronavirus infection Current Visit: Yes Status: Acute Plan to address problem: Coronavirus PCR ruled out (3) Hypomagnesemia Current Visit: Yes Status: Acute Plan to address problem: Resolved (4) Hypokalemia Current Visit: Yes Status: Acute Plan to address problem: Resolved (5) Hypertension Current Visit: No Status: Acute Plan to address problem: Blood pressure under control (6) Full code status Current Visit: Yes Status: Acute Plan to address problem: Patient is a full code. Disposition: TO HOME OR SELFCARE - Discharge Diagnoses (1) Acute respiratory failure with hypoxia Status: Acute (2) SIRS (systemic inflammatory response syndrome) Status: Acute Comment: Patient has SIRS in view of her tachycardia and leukocytosis and tachypnea (3) Pulmonary embolism Status: Acute Comment: Patient was on heparin drip till now patient changed to Eliquis 10 mg twice a day (4) Suspected 2019 novel coronavirus infection Status: Acute (5) Uncontrolled hypertension Status: Acute Comment: Medications adjusted (6) Chest pain Status: Acute Comment: Secondary to pulmonary infarct on the left side (7) GERD (gastroesophageal reflux disease) Status: Acute (8) Hypertension Status: Chronic Qualifiers: Hypertension type: essential hypertension Qualified Code(s): I10 - Essential (primary) hypertension Comment: No controlled Core Measure Documentation - Palliative Care Palliative Care/ Comfort Measures: Not Applicable - Core Measures Any of the following diagnoses?: none Exam - Constitutional Vitals: Temp Pulse Resp BP Pulse Ox 98.9 F 129 H 18 156/95 100 06/02/20 14:45 06/02/20 14:45 06/02/20 14:45 06/02/20 14:45 06/02/20 14:45 General appearance: Present: no acute distress, well-nourished - EENT Eyes: Present: PERRL ENT: hearing intact, clear oral mucosa - Neck Neck: Present: supple, normal ROM - Respiratory Respiratory effort: normal Respiratory: bilateral: CTA, rhonchi (Scattered rhonchi) - Cardiovascular Heart rate: 78 Rhythm: regular Heart Sounds: Present: S1 & S2. Absent: rub, click - Extremities Extremities: pulses symmetrical, No edema Peripheral Pulses: within normal limits - Abdominal General gastrointestinal: Present: soft, non-tender, non-distended, normal bowel sounds Female genitourinary: Present: normal - Integumentary Integumentary: Present: clear, warm, dry - Musculoskeletal Musculoskeletal: gait normal, strength equal bilaterally - Psychiatric Psychiatric: appropriate mood/affect, intact judgment & insight - Neurologic Neurologic: CNII-XII intact, moves all extremities Plan Activity: no restrictions Diet: low salt Follow up with: PRIMARY CAREMD [Primary Care Provider] - 3-5 Days
[2020-06-09] MEDS ORDERED: APIXABAN 5 MG TAB PO SCH (10:00)
== END 2020-06-02 17:45 | disposition home or self-care (01) | DRG 176 ==
LOC: ED 10:35 → 3A 14:51 → OBSVTOIN 06-01 12:37 → 4A 06-01 20:54
PROVIDERS: ADMIT Internal Medicine Geriatric Medicine; ATTEND Internal Medicine
DX: I26.99 Other pulmonary embolism without acute cor pulmonale (principal); R65.10 Systemic inflammatory response syndrome (SIRS) of non-infectious origin without acute organ dysfunction; I10 Essential (primary) hypertension; E07.9 Disorder of thyroid, unspecified; Z20.822 Contact with and (suspected) exposure to COVID-19; E87.6 Hypokalemia; F41.9 Anxiety disorder, unspecified; E83.42 Hypomagnesemia; D72.829 Elevated white blood cell count, unspecified; F17.200 Nicotine dependence, unspecified, uncomplicated; F10.10 Alcohol abuse, uncomplicated; F12.90 Cannabis use, unspecified, uncomplicated; Z98.51 Tubal ligation status; Z79.899 Other long term (current) drug therapy
CPT/HCPCS: 36415; 71045; 71275; 80048; 80053; 80307; 80320; 81001; 82550; 82728; 82947; 82962; 83615; 83735; 84145; 84436; 84443; 84481; 84484; 84703; 85014; 85018; 85025; 85049; 85379; 85520; 85610; 85730; 86140; 87040; 87086; 93005; G0378; G0480; J0360; J0456; J0696; J1644; J1885; J2060; J2270; J2405; J3475; J3480; Q9967; U0003